=== PATIENT | female | born 1955 | race Caucasian/White ===

== ENCOUNTER 2019-11-04 02:05 | Day surgery (SDC) | payer BC, SELFPAY ==
[2019-10-29 10:33] VITALS: BMI 35.2
[2019-11-04 13:25] VITALS: BP 137/84; PULSE 78; RESP 18; TEMP 36.7; O2SAT 98
--- NOTE | 2019-11-04 13:29 | WPDANESEPPF ---
Anes - Initial Pre Proc Eval Procedure: Operation Date: 11/04/19 14:30 Proposed Procedures p Screening Colonoscopy - Artemio Perez MD Date/Time: 11/04/19 13:29 Surgeon: Artemio Perez MD Pre Op Diagnosis: neoplasm screening Patient Data Age: 64 Gender: F Height: 1.68 m Weight: 100.8 kg Last Vital Signs Temp 36.7 C 11/04/19 13:25 Pulse 78 11/04/19 13:25 Resp 18 11/04/19 13:25 BP 137/84 11/04/19 13:25 Pulse Ox 98 11/04/19 13:25 Allergies Allergy/AdvReac Type Severity Reaction Status Date / Time No Known Allergies Allergy Verified 09/30/19 08:37 Home Medications Medication Instructions Recorded Confirmed Type ascorbic acid (vitamin C) 500 mg 500 mg PO DAILY 09/20/19 10/29/19 History capsule calcium carbonate 600 mg calcium 600 mg PO BID 09/20/19 10/29/19 History (1,500 mg) tablet cholecalciferol (vitamin D3) 125 125 mcg PO DAILY 09/20/19 10/29/19 History mcg (5,000 unit) tablet levothyroxine 88 mcg tablet 88 mcg PO DAILY 09/20/19 10/29/19 History sertraline 50 mg tablet 50 mg PO DAILY #30 tablet 09/20/19 11/04/19 Rx peg 3350-electrolytes 236 240 ml PO Q10M #4000 ml 10/14/19 Rx gram-22.74 gram-6.74 gram-5.86 gram solution acetaminophen [Tylenol Arthritis 650 mg PO Q8H 10/29/19 10/29/19 History Pain] Patient hx anesthesia problems: none Family hx anesthesia problems: none PMFSH Social History Social History Smoking status: Never smoker Alcohol intake: current Substance use: never Substance use type: does not use Additional living arrangements comments: , daughter, and 3 grandchildren. 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[employer] Gender identity (if verbalized by the patient): Female Spiritual care concerns: No Agree to blood products: Yes Anes - Eval Final PreProcedure Day of Procedure 03/05/20 13:29 Patient weight: obese Heart: regular rate and rhythm Lungs: clear to auscultation and normal air movement Airway: Mallampati scale class III Neurological: alert and oriented Last oral intake: >/= 8 hours ASA classification: II Emergent: no Anesthetic plan: proceed Anesthesia type and monitoring: general GIVS and standard monitoring Informed Consent: The patient's anesthetic plan and its attendant risks and benefits were discussed with the patient/family/POA. Questions were solicited and answers provided to the satisfaction of the patient/family/POA.
[2019-11-04] MEDS: LACTATED RINGERS 1,000 ML 150 ML IV CONT (13:40)
--- NOTE | 2019-11-04 14:08 | PM.HPGS ---
History of Present Illness History of Present Illness Consent: Risks, benefits, and alternatives have been discussed and questions answered. Patient agrees to proceed with procedure. Chief complaint: neoplasm screening Narrative: Radha Zhang is a 64 year old female here for screening colonoscopy, never had one. Review of Systems Constitutional: Constitutional: Denies headache(s) and Denies weakness Eyes: Eyes: Denies blurry vision ENT: Reports Normal hearing present, Denies headache(s) and Denies neck pain Cardiovascular: Cardiovascular: Denies chest pain and Denies dyspnea Respiratory: Respiratory: Denies dyspnea Gastrointestinal: Gastrointestinal: Reports no additional gastrointestinal complaints Genitourinary: Genitourinary: Denies dysuria Musculoskeletal: Musculoskeletal: Denies neck pain Integumentary/Breasts: Skin/Breast: Denies dry skin Neurologic: Reports Normal hearing present, Denies headache(s) and Denies weakness Psychiatric: Psychiatric: Denies anxiety Endocrine: Endocrine: Denies change in body appearance Hematologic/Lymphatic: Hematologic/Lymphatic: Denies easy bleeding Allergic/Immunologic: Allergic/Immunologic: Denies urticaria PMFSH Social History Social History Smoking status: Never smoker Alcohol intake: current Substance use: never Substance use type: does not use Additional living arrangements comments: , daughter, and 3 grandchildren. 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[employer] Gender identity (if verbalized by the patient): Female Spiritual care concerns: No Agree to blood products: Yes Meds Home Medications and Allergies Home Medications Medication Instructions Recorded Confirmed Type ascorbic acid (vitamin C) 500 mg 500 mg PO DAILY 09/20/19 10/29/19 History capsule calcium carbonate 600 mg calcium 600 mg PO BID 09/20/19 10/29/19 History (1,500 mg) tablet cholecalciferol (vitamin D3) 125 125 mcg PO DAILY 09/20/19 10/29/19 History mcg (5,000 unit) tablet levothyroxine 88 mcg tablet 88 mcg PO DAILY 09/20/19 10/29/19 History sertraline 50 mg tablet 50 mg PO DAILY #30 tablet 09/20/19 11/04/19 Rx peg 3350-electrolytes 236 240 ml PO Q10M #4000 ml 10/14/19 Rx gram-22.74 gram-6.74 gram-5.86 gram solution acetaminophen [Tylenol Arthritis 650 mg PO Q8H 10/29/19 10/29/19 History Pain] Allergies Allergy/AdvReac Type Severity Reaction Status Date / Time No Known Allergies Allergy Verified 09/30/19 08:37 Vital Signs Vital Signs - 24 hr 11/04/19 13:25 Temperature 98.1 F Pulse Rate 78 Respiratory Rate 18 Blood Pressure 137/84 Pulse Oximetry 98 Exam Const: General: comfortable and no acute distress HENMT: General nose exam: Normal nares present Eyes: General: appearance normal, both eyes and all related structures Neck: Neck: no JVD Resp: Auscultation: clear to auscultation bilaterally Cardio: Rate: regular rate Rhythm: regular rhythm GI: Inspection: non-distended GI Palp: Yes Soft to palpation Skin: General skin exam: normal color Neuro: General: gait normal Speech: normal speech Extrem: General: normal to inspection Psych: Mental Status: mental status grossly normal Assessment and Plan Assessment and plan (1) Colon cancer screening: Code(s): Z12.11 - Encounter for screening for malignant neoplasm of colon Status: Acute Assessment and Plan: will proceed with colonoscopy
[2019-11-04 14:34] VITALS: BP 106/61; PULSE 61; RESP 16; O2SAT 95
[2019-11-04 14:44] VITALS: BP 125/74; PULSE 60; RESP 18; O2SAT 99
[2019-11-04 14:54] VITALS: BP 147/85; PULSE 60; RESP 18; O2SAT 100
== END 2019-11-04 15:13 | disposition home or self-care (01) ==
PROVIDERS: PCP Family Medicine; Visit Provider Internal Medicine Gastroenterology
PROC: 0DJD8ZZ Inspection of Lower Intestinal Tract, Via Natural or Artificial Opening Endoscopic (ICD-10-PCS; CPT 45378; principal; 2019-11-04 14:30)
DX: Z12.11 Encounter for screening for malignant neoplasm of colon (principal); D12.2 Benign neoplasm of ascending colon; K57.30 Diverticulosis of large intestine without perforation or abscess without bleeding; K64.8 Other hemorrhoids; E66.9 Obesity, unspecified; Z68.35 Body mass index [BMI] 35.0-35.9, adult
CPT/HCPCS: 45385; 88305; J2704; J7120

== ENCOUNTER 2020-01-25 07:56 | Outpatient (CLI) | payer BC, SELFPAY ==
--- NOTE | 2020-01-25 09:07 | ECG_ITS ---
Measurements Intervals [place] Rate: 62 P: 57 VT: 221 QRS: -24 QRSD: 118 T: 65 QT: 385 QTc: 391 Interpretive Statements SINUS RHYTHM WITH FIRST DEGREE AV BLOCK LEFT VENTRICULAR HYPERTROPHY AND ST-T CHANGE MINIMAL Q WAVES- HIGH LATERAL LEADS ABNORMAL ECG Electronically Signed On 01-25-2020 9:24:51 CDT by Rambo Gresham D.O.
[2020-01-25 09:30] LABS: Basophils Percent Auto 0.4 % (0.2-1.2); Eosinophils Absolute Auto 0.2 K/mm3 (0-0.3); Eosinophils Percent Auto 3.6 % (0-4.4); Hemoglobin 13.9 g/dL (12.0-15.0); Immature Granulocyte Absolute 0.01 K/mm3 (0.00-0.031); Immature Granulocyte Percent A 0.2 % (0-0.5); Lymphocytes Absolute Auto 1.05 K/mm3 (0.9-3.2); Lymphocytes Percent Auto 22.1 % (18.3-44.2); Mean Corpuscular HGB Conc 33.1 g/dl (32-36); Mean Corpuscular Volume 90.7 fl (80-100); Mean Platelet Volume 11.2 fl (7.4-10.4); Monocytes Absolute Auto 0.5 K/mm3 (0.1-0.6); Monocytes Percent Auto 10.1 % (2.6-8.5); Neutrophils Percent Auto 63.6 % (45.5-73.1); Platelet Count Result 201 k/mm3 (150-375); Red Blood Count 4.63 M/mm3 (4.2-5.4); Red Cell Distribution Width 12.7 % (11.5-14.5); White Blood Count 4.8 K/mm3 (4.5-10.0)
[2020-01-25 09:40] LABS: Urine Cotinine NEGATIVE
[2020-01-25 09:41] LABS: Hemoglobin A1C 5.9 % (<5.7)
[2020-01-25 09:42] LABS: Albumin Level 4.3 g/dL (3.5-5.1); Estimated Glomerular Filt Rate > 60; Glucose 112 mg/dL (65-105)
== END 2020-01-25 07:57 | disposition home or self-care (01) ==
LOC: ANHSURGERY 07:59
PROVIDERS: PCP Family Medicine; Visit Provider Orthopaedic Surgery
DX: M17.0 Bilateral primary osteoarthritis of knee (principal)
CPT/HCPCS: 36415; 80307; 82040; 82565; 82947; 83036; 85025; 87081; 93005

== ENCOUNTER 2020-02-04 00:09 | Outpatient (CLI) | payer BC, SELFPAY ==
[2020-02-04 15:54] LABS: SARS-CoV-2 RNA PCR Negative
== END 2020-02-04 00:10 | disposition home or self-care (01) ==
LOC: ANHCOVIDDT 00:09
PROVIDERS: PCP Family Medicine; Visit Provider Orthopaedic Surgery
DX: Z01.812 Encounter for preprocedural laboratory examination (principal); Z20.828 Contact with and (suspected) exposure to other viral communicable diseases
CPT/HCPCS: 87635; C9803; U0003

== ENCOUNTER 2020-02-07 03:35 | Day surgery (SDC) | payer BC, SELFPAY ==
[2020-01-25 08:28] VITALS: BMI 36.5
[2020-01-25 08:52] VITALS: BP 118/81; PULSE 70; RESP 18; TEMP 36.9; O2SAT 100
[2020-02-07] VITALS (15 sets, daily range): BP systolic 129–160; BP diastolic 58–103; PULSE 64–76; RESP 12–18; TEMP 36–36.9; O2SAT 97–100
--- NOTE | ~2020-02-07 | XR_ITS ---
EXAMINATION: XR knee LT 2V DATE: 02/07/2020 13:51 CDT INDICATION: Left knee arthroplasty TECHNIQUE: 2 views left knee FINDINGS: There is a left total knee arthroplasty in expected position. Subcutaneous gas with fluid and air in the joint are consistent with recent surgery. No evidence of periprosthetic fracture. IMPRESSION: 1. Recent left total knee arthroplasty. Reviewed, dictated and finalized at location A.
[2020-02-07] MEDS: LACTATED RINGERS 1,000 ML 30 ML IV CONT ×2 (09:10→13:15)
--- NOTE | 2020-02-07 09:11 | WPDANESEPPF ---
Anes - Initial Pre Proc Eval Procedure: Operation Date: 02/07/20 10:30 Proposed Procedures p Left Total Knee Arthroplasty, Right Knee Injection - Ervin Mendoza MD Date/Time: 02/07/20 09:11 Surgeon: Ervin Mendoza MD Pre Op Diagnosis: OA Left Knee Patient Data Age: 64 Gender: F Height: 5 ft 5.5 in Weight: 102.2 kg Last Vital Signs Temp 36.9 C 01/25/20 08:52 Pulse 70 01/25/20 08:52 Resp 18 01/25/20 08:52 BP 118/81 01/25/20 08:52 Pulse Ox 100 01/25/20 08:52 Allergies Allergy/AdvReac Type Severity Reaction Status Date / Time ibuprofen AdvReac Mild Hypertensio Verified 02/07/20 08:49 [From NeoProfen (ibuprofen n lysn)(PF)] meloxicam AdvReac Mild NAUSEA AND Verified 02/07/20 08:49 HYPERTENSION Home Medications Medication Instructions Recorded Confirmed Type ascorbic acid (vitamin C) 500 mg 500 mg PO DAILY 09/20/19 02/07/20 History capsule calcium carbonate 600 mg calcium 600 mg PO BID 09/20/19 02/07/20 History (1,500 mg) tablet cholecalciferol (vitamin D3) 125 125 mcg PO DAILY 09/20/19 02/07/20 History mcg (5,000 unit) tablet acetaminophen [Tylenol Arthritis 650 mg PO Q8H PRN 10/29/19 02/07/20 History Pain] sertraline 50 mg tablet 50 mg PO DAILY #30 tablet 11/29/19 02/07/20 Rx hydrocodone 5 mg-acetaminophen 325 1 tablet PO Q8H PRN #30 tablet 12/30/19 02/07/20 Rx mg tablet rivaroxaban 10 mg tablet 10 mg PO DAILY #13 tablet MDD 1 01/26/20 02/07/20 Rx tab = 10mg levothyroxine 88 mcg tablet 88 mcg PO DAILY #90 tablet 02/02/20 02/07/20 Rx Patient hx anesthesia problems: none Family hx anesthesia problems: none PMFSH Past Medical History Medical History (Updated 02/07/20 @ 09:11 by Caden Figueroa MD) Colon cancer screening Depression Mai's disease Obesity Surgical History Surgical History History of dilatation and curettage 1984 Dr. Ivy History of facial surgery 12/2011 Family History Family History Father Diabetes mellitus Heart disease Hypertension Mother Diabetes mellitus Heart disease Hypertension Sibling Cancer Grandparent Diabetes mellitus maternal and paternal Cancer Maternal Social History Social History Smoking status: Never smoker Alcohol intake: current Substance use: never Substance use type: does not use Additional living arrangements comments: , daughter, and 3 grandchildren. 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[employer] Gender identity (if verbalized by the patient): Female Spiritual care concerns: No Agree to blood products: Yes Anes - Eval Final PreProcedure Day of Procedure 02/07/20 09:11 Patient weight: obese Heart: regular rate and rhythm Lungs: clear to auscultation Airway: Mallampati scale class II Neurological: alert and oriented Last oral intake: >/= 8 hours ASA classification: II Emergent: no Anesthetic plan: proceed Anesthesia type and monitoring: general LMA and standard monitoring Informed Consent: The patient's anesthetic plan and its attendant risks and benefits were discussed with the patient/family/POA. Questions were solicited and answers provided to the satisfaction of the patient/family/POA.
[2020-02-07] MEDS: TRANEXAMIC ACID 1,000MG/ISO100 1,000 MG/100 ML BAG 200 MG IVPB (09:45)
--- NOTE | 2020-02-07 09:45 | WPDHPUPDATE1 ---
History and Physical Update Update Date/Time: 02/07/20 09:45 History and Physical has been reviewed, including an updated exam of the patient. There are NO changes in the patient's condition. Risks, benefits, and alternatives have been discussed and questions answered. Patient agrees to proceed with procedure.
[2020-02-07] MEDS: ceFAZolin 2 GM/D5W 50 ML 2 GM/50 ML BAG IVPB ×2 (10:34→18:26)
[2020-02-07] MEDS: SODIUM CHLORIDE 0.9% IV 50 ML, TRANEXAMIC ACID 1,000 MG TOPICAL (11:27)
[2020-02-07] MEDS: GENTAMICIN BONE CEMENT REFOBACIN 1 EACH TOPICAL (11:35)
[2020-02-07] MEDS: ceFAZolin SODIUM 1 GM VIAL IV PUSH (12:03)
--- NOTE | 2020-02-07 13:11 | P.OP_ITS ---
Procedure Note - Detailed Date of procedure: 02/07/20 Pre-op diagnosis: OA both knees Post-op diagnosis: same Procedure performed: Left total knee replacement; right knee injection. Description of procedure: The patient was identified and proper site identified. The patient was taken to the operating room and transferred to the OR table positioning supine taking care to pad the torso and extremities. After induction of general anesthesia and intubation a nonsterile tourniquet was placed high on the left thigh. While this was being done, the right knee was injected intra-articularly using sterile technique with 3 cc of 0.25% Marcaine and 20 mg of Kenalog. The left lower extremity was prepped and draped in the usual sterile fashion. The extremity was exsanguinated and with the knee flexed tourniquet was inflated to 300 mmHg remaining up for approximately 66 minutes. An anterior midline incision was made and a modified medial parapatellar approach was used. Infra and suprapatellar fat pads were excised. Patella was resected leaving 15 mm thickness and prepared for the 34 round three peg component. Using the intramedullary guide the distal femur was cut in the proper orientation for the size 65 femoral component. Using the extramedullary guide the tibia was cut perpendicular to the long axis protecting collateral ligaments and popliteal structures. It was sized to a 71. Flexion and extension gaps were balanced. Trial reduction was undertaken and the weight- bearing line was noted to passed through the center of the joint. Proximal tibia was drilled and punched in the proper orientation for the real component. Trial components were removed. The bone surfaces were washed with pulsatile lavage and dried. The real components were cemented simultaneously. The knee was held in extension and the patella held clamped until the cement had cured. Excess cement was removed from the joint. After trialing it was determined that the 10 mm insert gave full range of motion from 0-115 degrees of flexion and the patella tracked in the femoral groove with slight lift-off; and extra synovial lateral release was performed protecting the superior lateral geniculate artery. After final lavage the joint the real 10 insert was placed and secured with a locking bar. A Betadine and saline wash was placed into the wound and allowed to sit for approximately 3 minutes and then evacuated. Periarticular tissues were infiltrated with 60 cc of the arthroplasty solution. 1 g of tranexamic acid was left in the wound. The extensor mechanism was repaired with #2 Vicryl suture and 0 looped PDS suture. Subcu was reapproximated with 2. Vicryl in the deeper layers and two 0 strata fix with tissue adhesive for the skin. A sterile dressing was applied. She tolerated the procedure well, was awakened and extubated, transferred to the bed and was taken to recovery area in stable condition. There were no known intraoperative complications. Perioperative antibiotics were administered. Surgeon: Ervin Mendoza MD Estimated blood loss (mL): 250 Tourniquet time (min): 66 Drains: No Packing: No Pathology: none sent Complications: No immediate complications Condition: stable Disposition: PACU
--- NOTE | 2020-02-07 14:12 | SUR.PHASEI ---
[id number] left message with , update on pt condition and room#
--- NOTE | 2020-02-07 14:15 | SUR.PHASEI ---
[id number] sbar faxed floor notified
--- NOTE | 2020-02-07 15:43 | ADMGEN ---
This patient, Radha Zhang, was admitted to Medical Room 243-01. Patient/family oriented to hospital policies and general routines including ID bracelet, bed and alarms, visiting hours, pain management, procedures, bathroom and other care routines, personal items, smoking policy, room service/diet, and visiting hours. Valuables list has been completed. Information on how to activate the Rapid Response Team has been discussed. Patient/Family are encouraged to report perceived risks to care and to ask questions if they do not understand what they are told or what they should do.
[2020-02-07] MEDS: DOCUSATE SODIUM 100 MG CAPSULE PO (18:22)
[2020-02-07] MEDS: CALCIUM CARBONATE (OSCAL) 500 MG TABLET PO (18:26)
[2020-02-07] MEDS: FAMOTIDINE 20 MG TABLET PO (20:21)
[2020-02-08 01:00] VITALS: BP 129/71; PULSE 66; RESP 20; TEMP 36.7; O2SAT 99
[2020-02-08] MEDS: ceFAZolin 2 GM/D5W 50 ML 2 GM/50 ML BAG IVPB ×2 (02:35→10:54)
[2020-02-08] MEDS: LEVOTHYROXINE SODIUM 88 MCG TABLET PO (05:35)
--- NOTE | 2020-02-08 07:33 | WPDANESPN ---
Anes - Prog Note Post-Op Date/Time: 02/08/20 07:33 Cardiovascular status: normal Respiratory status: normal Airway patency: baseline Mental status: baseline Post-Op hydration status: normal Vital Signs: Last Vital Signs Temp 36.7 C 02/08/20 01:00 Pulse 66 02/08/20 01:00 Resp 20 02/08/20 01:00 BP 129/71 02/08/20 01:00 Pulse Ox 99 02/08/20 01:00 I/O: Intake & Output 02/07/20 02/07/20 02/08/20 15:59 23:59 07:59 Intake Total 450 770 450 Output Total 1500 Balance 450 770 -1050 02/07/20 09:16 Blood Type A Positive Antibody Screen Negative Post-procedural complaints: none Patient Feedback: Patient satisfied with anesthetic care.
--- NOTE | 2020-02-08 07:38 | PM.PNORT ---
Progress Note: A&P Assessment and Plan (1) Degenerative arthritis of knee, bilateral: Qualifiers: Osteoarthritis type: primary Qualified Code(s): M17.0 - Bilateral primary osteoarthritis of knee Code(s): M17.0 - Bilateral primary osteoarthritis of knee Status: Acute (2) History of total left knee replacement: Code(s): Z96.652 - Presence of left artificial knee joint Status: Acute Assessment and Plan: 64-year-old female doing well postop day one left total knee replacement. Her right knee was injected in is doing fine. Plan discharge home today. Therapy starts in a week. She was instructed to call with any questions prior to follow-up. Surgery discussed and questions answered. Subjective Subjective Date/Time Seen: 02/08/20 07:38 Post Op day: 1 Principal diagnosis: Status post left total knee replacement and right knee injection Review of Systems Constitutional: Constitutional: Denies chills and Denies fever(s) Eyes: Eyes: Reports no additional eye complaints ENT: Reports system reviewed and no additional complaints, except as documented Cardiovascular: Cardiovascular: Denies chest pain and Denies dyspnea on exertion Respiratory: Respiratory: Reports no additional respiratory complaints and Denies dyspnea on exertion Gastrointestinal: Gastrointestinal: Denies abdominal pain and Denies bloating Exam Const: General: cooperative, no acute distress and alert Nutritional Appearance: other Orientation/consciousness: patient oriented x3 Limitations: no limitations HENMT: Head: normal to inspection Ears: hearing grossly normal bilaterally Face and sinus: face symmetric Mouth: Yes moist mucous membranes Teeth and gingiva: fair dentition Eyes: Alignment and Position: alignment normal and position normal Sclera: sclerae normal Neck: Neck: normal visual inspection and nontender Chest: Chest palpation & inspection: normal inspection of the chest Resp: Effort & Inspection: normal respiratory effort and able to speak in complete sentences GI: Inspection: other (Nondistended) Skin: General skin exam: normal color Rashes: no rashes Neuro: General: patient oriented x3 Cognition (Neuro): normal cognition Speech: normal speech Gait exam (Neuro): Other gait observations present Motor exam (neuro): 5/5 motor strength present throughout (Left lower extremity) Sensory Exam: normal sensation Extrem: General: normal to inspection and other Other: Exam of the left knee wound shows it to be well approximated, dry and non erythematous. Very little swelling in the knee. Neurovascular status grossly unremarkable left lower extremity Psych: Appearance: grossly normal Mental Status: mental status grossly normal Objective Data Vital Signs Vital Signs: Vital Signs - 24 hr 02/07/20 09:32 02/07/20 13:20 02/07/20 13:35 Temperature 97.2 F L 97 F L Pulse Rate 64 76 72 Respiratory Rate 16 18 12 Blood Pressure 129/76 148/81 H 140/103 H Pulse Oximetry 98 98 98 02/07/20 13:50 02/07/20 14:05 02/07/20 14:19 Temperature Pulse Rate 68 68 69 Respiratory Rate 15 12 14 Blood Pressure 159/75 H 160/87 H 154/82 H Pulse Oximetry 98 97 99 02/07/20 14:30 02/07/20 14:45 02/07/20 15:00 Temperature Pulse Rate 65 65 73 Respiratory Rate 14 14 12 Blood Pressure 148/86 H 156/80 H 153/87 H Pulse Oximetry 98 99 100 02/07/20 15:15 02/07/20 15:30 02/07/20 16:00 Temperature 97.3 F L 96.9 F L 97.2 F L Pulse Rate 69 65 67 Respiratory Rate 16 16 16 Blood Pressure 140/68 145/81 H 145/73 H Pulse Oximetry 100 100 100 02/07/20 19:00 02/07/20 20:00 02/07/20 21:00 Temperature 96.8 F L 98.4 F Pulse Rate 75 75 71 Respiratory Rate 16 16 16 Blood Pressure 134/68 130/58 L Pulse Oximetry 99 99 98 02/08/20 01:00 Temperature 98.0 F Pulse Rate 66 Respiratory Rate 20 Blood Pressure 129/71 Pulse Oximetry 99 Intake/Output Intake/Output: Intake & Output 02/05/20 02/06/20
--- NOTE | 2020-02-08 07:44 | P.DS_ITS ---
DS: Admitting Diagnosis Admitting Diagnosis Admitting Diagnosis: Osteoarthritis knees DS: Discharge Diagnosis Discharge Diagnosis (1) History of total left knee replacement: Code(s): Z96.652 - Presence of left artificial knee joint Status: Acute (2) Degenerative arthritis of knee, bilateral: Qualifiers: Osteoarthritis type: primary Qualified Code(s): M17.0 - Bilateral primary osteoarthritis of knee Code(s): M17.0 - Bilateral primary osteoarthritis of knee Status: Acute DS: Summary Time Spent with Patient Time attestation: Total time spent providing and/or coordinating discharge services: DS: Data Data Completed and Pending Labs on day of discharge: Labs from last 24 hours 02/07/20 09:16 Blood Type A Positive Antibody Screen Negative Discharge Plan Discharge Patient Disposition: Home, Self-Care Discharge Instructions: Please call [facility] at as soon as possible to verify your follow-up appointment to be seen in two weeks. Also, call the office with any orthopedic/surgical related questions prior to follow-up. * 3 times daily for 20 minutes each time, reclining in bed with ice packs over the incision and a pillow underneath the affected calf. * Your wound is glued so it is okay to get into the shower and get the wound wet. * Be sure to read through all the information that came from a my office and the hospital. Most of the answer was you will need can be found that material. * Call the office with any questions that you cannot find answers to, or concerns you may have. * After the Xarelto is completed, start taking one coated 325 mg aspirin daily and do this for four more weeks. * Be sure to get up and move around several times daily but do not overdo it. Patient Instructions: Rivaroxaban (By mouth), Joint Replacement Surgery (DC), Knee Replacement (DC) Discharge Medications: New oxycodone-acetaminophen 5-325 mg Tablet 1 tablet PO Q4HR PRN (Reason: pain) Qty: 40 RF: 0 ondansetron HCl [Zofran] 4 mg tablet 4 mg PO Q6H PRN (Reason: nausea and vomiting) Qty: 20 RF: 0 Continued cholecalciferol (vitamin D3) [Vitamin D3] 125 mcg (5,000 unit) tablet 125 mcg PO DAILY RF: 0 ascorbic acid (vitamin C) 500 mg capsule 500 mg PO DAILY RF: 0 calcium carbonate [Calcium 600] 600 mg calcium (1,500 mg) tablet 600 mg PO BID RF: 0 Xarelto 10 mg tablet 10 mg PO DAILY MDD 1 tab = 10mg Qty: 13 RF: 0 acetaminophen [Tylenol Arthritis Pain] 650 mg Tablet Extended Release 650 mg PO Q8H PRN (Reason: Pain) RF: 0 sertraline [Zoloft] 50 mg tablet 50 mg PO DAILY Qty: 30 RF: 3 levothyroxine 88 mcg tablet 88 mcg PO DAILY Qty: 90 RF: 0 Discontinued hydrocodone-acetaminophen 5-325 mg tablet 1 tablet PO Q8H PRN (Reason: pain) Qty: 30 RF: 0 Primary Care Provider: Celeste Gagnon Attending physician on admission: Ervin Mendoza VTE Prophylaxis VTE prophylaxis: mechanical ordered and pharmacologic ordered
[2020-02-08] MEDS: polyethylene glycoL 3350 17 GM POWD.PACK PO (09:36)
[2020-02-08] MEDS: ASCORBIC ACID 500 MG TABLET PO (09:36)
[2020-02-08] MEDS: CHOLECALCIFEROL 1,000 UNIT TABLET 5000 UNITS PO (09:36)
[2020-02-08] MEDS: FAMOTIDINE 20 MG TABLET PO (09:36)
[2020-02-08] MEDS: RIVAROXABAN 10 MG TABLET PO (09:36)
[2020-02-08] MEDS: DOCUSATE SODIUM 100 MG CAPSULE PO (09:36)
[2020-02-08] MEDS: CALCIUM CARBONATE (OSCAL) 500 MG TABLET PO (09:36)
[2020-02-08] MEDS: SERTRALINE HCL 50 MG TABLET PO (09:36)
== END 2020-02-08 15:48 | disposition home or self-care (01) ==
LOC: ANHSURGERY 13:14 → ANH2MED 15:05
PROVIDERS: PCP Family Medicine; Visit Provider Orthopaedic Surgery
PROC: (CPT 27447; principal; 2020-02-07 10:30)
DX: M17.0 Bilateral primary osteoarthritis of knee (principal); E06.3 Autoimmune thyroiditis; F32.9 Major depressive disorder, single episode, unspecified; E66.9 Obesity, unspecified; Z68.36 Body mass index [BMI] 36.0-36.9, adult
CPT/HCPCS: 27447; 20610; 36415; 73560; 86850; 86900; 86901; 97110; 97116; 97161; 97165; 97530; A9270; C1713; J0131; J0171; J0690; J1100; J2250; J2270; J2405; J2704; J2795; J3010; J3301; J7120

== ENCOUNTER 2020-03-28 12:31 | Outpatient (CLI) | payer BC, SELFPAY ==
--- NOTE | ~2020-03-28 | US_ITS ---
US thyroid INDICATION: Nontoxic multinodular goiter. TECHNIQUE: Real-time sonographic images of the thyroid gland were obtained. COMPARISON: Ultrasound dated 05/06/2012 FINDINGS: The right thyroid lobe measures 5.9 x 2.7 x 3.7 cm. The left thyroid lobe measures 7.5 x 3 .9 x 4.5 cm. In the isthmus there is a solid hypoechoic mass which is wider than tall, smooth margins without internal calcifications measuring 2.8 x 2.2 x 1.2 cm compared with 2.2 x 2 x 1.3 cm on prior examination. This is TR 4, moderately suspicious. In the right lobe there is a conglomeration of mas ses with the largest discrete nodule measuring 3.7 x 2.5 x 2.7 cm. This mass is solid, hyperechoic, w ider than tall, lobulated margins without definite internal calcifications, TR 4, moderately suspicio us. There is internal vascularity. Largest nodule in the left lobe measures 3.9 x 3.4 x 3.1 cm. This mass is mixed solid and cystic, slightly hyperechoic, wider than tall, lobulated/irregular margins wi thout internal calcifications, TR 4, moderately suspicious. IMPRESSION: 1. Enlarged thyroid gland with multiple masses. There has been enlargement of multiple masses partic ularly in the isthmus and right lobe. Ultrasound-guided fine-needle aspiration biopsy of dominant mas ses in the right lobe, left lobe and isthmus recommended. Reviewed, dictated and finalized at location A. IMPRESSION: 1. Enlarged thyroid gland with multiple masses. There has been enlargement of multiple masses particularly in the isthmus and right lobe. Ultrasound-guided f ine-needle aspiration biopsy of dominant masses in the right lobe, left lobe an d isthmus recommended.
== END 2020-03-28 12:32 | disposition home or self-care (01) ==
LOC: ANHIMG 12:33
PROVIDERS: PCP Family Medicine; Visit Provider Otolaryngology
DX: E04.2 Nontoxic multinodular goiter (principal)
CPT/HCPCS: 76536

== ENCOUNTER 2020-04-07 12:57 | Outpatient (CLI) | payer BC, SELFPAY ==
--- NOTE | ~2020-04-07 | US_ITS ---
EXAMINATION: US FNA w image guidance, US abscess cyst aspiration, US FNA additional DATE: 04/07/2020 14:49 INDICATION: Nontoxic multinodular goiter TECHNIQUE: A time-out was performed to verify the patient's name, date of , and procedure to be performed . The procedure and its benefits and risks were discussed with the patient. Risks specifically discus sed included bleeding and infection. The patient understood the risks and agreed to proceed. The neck was prepped and draped in the usual sterile manner. 3 mL 1% lidocaine was used for local anesthesia . Attention was first turned to the right thyroid nodule. 5 passes were made with a 25G needle into the lesion. Appropriate needle location was documented with continuous sonographic guidance. Attenti on was then turned to the nodule at the thyroid isthmus. There appeared to be a layering fluid fluid level in the dependent aspect of the nodule suggesting that this represented a complex cystic lesion despite its hypoechoic appearance with multiple foci of likely artifactual color on color Doppler sylvester ging. An initial pass with ultrasound guidance was made with a 25G needle into the lesion with aspira tion yielding small amount of relatively clear fluid. A second pass with ultrasound guidance was made into the lesion with a 21G needle and 3 mm of turbid greenish lugo-colored fluid was aspirated result ing in complete decompression of the cyst. Finally attention was turned to the nodule in the left thy roid. 5 passes were made with a 25G needle into the lesion. Appropriate needle location was document ed with continuous sonographic guidance. Specimens from each nodule were delivered to the Department of pathology. Sterile bandages were applied. There were no immediate complications. FINDINGS: Grayscale ultrasound images demonstrate biopsy needles advanced into nodules in the left and right th yroid lobes and a complex cystic lesion at the thyroid isthmus. IMPRESSION: 1. Successful ultrasound-guided fine needle aspiration of a 3.3 x 3.0 x 2.0 cm solid isoechoic mass in the superior right thyroid lobe. 2. Successful ultrasound-guided aspiration of a 2.4 x 1.4 x 2.3 cm complex cystic lesion at the thyro id isthmus. 3. Successful ultrasound-guided fine-needle aspiration of a 3.7 x 2.8 cm solid isoechoic mass in the inferior left thyroid lobe. Reviewed, dictated and finalized at location A. IMPRESSION: 1. Successful ultrasound-guided fine needle aspiration of a 3.3 x 3.0 x 2.0 cm solid isoechoic mass in the superior right thyroid lobe. 2. Successful ultrasound-guided aspiration of a 2.4 x 1.4 x 2.3 cm complex cyst ic lesion at the thyroid isthmus. 3. Successful ultrasound-guided fine-needle aspiration of a 3.7 x 2.8 cm solid isoechoic mass in the inferior left thyroid lobe. IMPRESSION: 1. Successful ultrasound-guided fine needle aspiration of a 3.3 x 3.0 x 2.0 cm solid isoechoic mass in the superior right thyroid lobe. 2. Successful ultrasound-guided aspiration of a 2.4 x 1.4 x 2.3 cm complex cyst ic lesion at the thyroid isthmus. 3. Successful ultrasound-guided fine-needle aspiration of a 3.7 x 2.8 cm solid isoechoic mass in the inferior left thyroid lobe.
== END 2020-04-07 12:58 | disposition home or self-care (01) ==
LOC: ANHIMG 13:07
PROVIDERS: PCP Family Medicine; Visit Provider Otolaryngology
DX: E04.2 Nontoxic multinodular goiter (principal)
CPT/HCPCS: 10005; 10006; 76942; 88104; 88108; 88173; 88305

== ENCOUNTER 2020-05-11 11:15 | Outpatient (RCR) | payer BC, SELFPAY ==
--- NOTE | 2020-02-14 13:30 | PTOPEVAL ---
Thank you for referring Radha Zhang to [facility]. Please review, sign, date and return this plan of care ANA. Pt referred to therapy due to s/p left TKR on 02/07/20. She demonstrates decreased knee range, LE weakness, decreased ability to perform transfers and ambulation, increased pain and decreased tolerance with daily activities. She requires additional skilled PT 2-3x/wk x 8 wk. I agree with and certify that the following plan of care is medically necessary. Referring Physician Date Attending Provider: Ervin Mendoza MD *PT Outpatient Evaluation Start: 02/14/20 12:36 Freq: Status: Active Protocol: Document 02/14/20 12:32 CAP (Rec: 02/14/20 13:30 CAP [id number]) Therapy Assessment Status Assessment Status Assessment Status Evaluation Outpatient Past Medical History Neurological History Hx Neurological Disorders No Significant History Cardiovascular History Hx Other Cardiac Disorders Yes: WATER AEROBIC 2-3 X WK FOR 45 MINS Respiratory History Hx Respiratory Disorders No Significant History Gastrointestinal History Hx Gastrointestinal Disorders No Significant History Genitourinary History Hx Genitourinary Disorders No Significant History Musculoskeletal History Hx Arthritis Yes: KNEES Hx Fractures Yes: COLLAR BONE,NOSE Hx Joint Replacement Yes: left TKR Hx Other Musculoskeletal Disorders Yes: OA LEFT KNEE Hematological History Hx Hematological Disorders No Significant History Endocrine History Hx Other Endocrine Disorders Yes: HASHIMOTOS THYROIDITIS HEENT History Hx Other HEENT Disorders Yes: 2011 FACIAL SURGERY AT [facility]- FELL AT WORK Integumentary History Hx Skin Disorders No Significant History Reproductive History Hx Post Menopausal Yes Psychosocial History Hx Depression Yes Pain History Has Past Pain Affected Your Daily Life Yes: KNEES Anesthesia History Hx Anesthesia Reactions No Significant History Evaluation Information Problem Diagnosis left TKR Onset 02/07/20 Cause OA of knee Additional Evaluation Detail right TKR to be scheduled in 12 wks. Subjective Information Pt reports her left knee Query Text:As Reported By Patient/ remains sore and painful. She Family is walking with the rollator. She reports limitations with ADL's, walking household and community mobility, prolonged position, getting in/out of bed. 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 Prior to
--- NOTE | 2020-03-16 16:33 | PTOPEVAL ---
Thank you for referring Radha Zhang to [facility]. Please review, sign, date and return this plan of care ANA. Pt has received 10 therapy visits to address LE impairments related to TKR. She is progressing with LE strength, knee range, and performance with functional mobility. She requires additional skilled PT 2-3x/wk x 6 wk to achieve maximal function. I agree with and certify that the following plan of care is medically necessary. Referring Physician Date Attending Provider: Ervin Mendoza MD Physical therapy re-evaluation note *PT Outpatient Evaluation Start: 02/14/20 12:36 Freq: Status: Active Protocol: Document 03/16/20 15:29 CAP (Rec: 03/16/20 16:09 CAP [id number]) Therapy Assessment Status Assessment Status Assessment Status Re-evaluation Problem Diagnosis left TKR Onset 02/07/20 Cause OA of knee Additional Evaluation Detail right TKR to be scheduled in 12 wks. Subjective Information Pt reports her left knee is Query Text:As Reported By Patient/ more sore and stiff today Family than it has been. she is unsure of the reason for the decline in status. She is walking with the quad cane. She reports improved ability to walk in the house and community distances. She is able to sit in the front seat for up to 1 hours. She is able to allen more general activities in sitting and standing. She is performing cooking task in the kitchen. She has been walking the inclined driveway at her house without difficulty. Pain Assessment Timing of Pain Assessment Timing of Pain Assessment Re-assessment Pain Scale Pain Scale Used Numeric (1 - 10) Self Report Pain Assessment Left Knee(s) Reported Pain Level 3 Pain Description Aching,Tightness Pain Frequency Continuous Lowest Pain Intensity 1 Greatest Pain Intensity 3 Pain Aggravating Factors ADL's,Prolonged Position Pain Behaviors Grimacing,Guarding Pain Score Pain Score 3: Self Report Lower Extremity Range of Motion Knee Range of Motion Left Reason Not Measured Pain Knee Flexion Range of Motion - Active 70 Knee Flexion Range of Motion - Passive 75 Knee Extension Range of Motion - Active -18 Query Text: Knee Exte
--- NOTE | 2020-04-19 11:01 | PTOPEVAL ---
Thank you for referring Radha Zhang to [facility].? Pt has received 18 therapy visits to address her limitations related to her knee surgery. The patient is scheduled to be seen for therapy? 2 x/week for 4 weeks. Please review, sign, date and return this plan of care ANA. I agree with and certify that the following plan of care is medically necessary. Referring Physician Date Attending Provider: Ervin Mendoza MD Physical Therapy progress note *PT Outpatient Evaluation Start: 02/14/20 12:36 Freq: Status: Active Protocol: Document 04/18/20 13:28 EMMETT (Rec: 04/18/20 14:24 EMMETT [id number]) Therapy Assessment Status Assessment Status Assessment Status Re-evaluation Evaluation Information Problem Diagnosis left TKR Onset 02/07/20 Cause OA of knee Additional Evaluation Detail right TKR to be scheduled in 12 wks. Subjective Information Pt reports her left knee is Query Text:As Reported By Patient/ more sore and stiff today Family after 10 hours in the car this weekend. She is walking without a device most of the time. She reports improved ability to walk in the house and community distances. She was able to allen 3 hours in the car, but increase knee pain/ stiffness. She is performing household task without difficulty. She is driving and performing shopping task without assitsance. Pain Assessment Timing of Pain Assessment Timing of Pain Assessment Re-assessment Pain Scale Pain Scale Used Numeric (1 - 10) Self Report Pain Assessment Right Knee(s) Reported Pain Level 1 Pain Description Aching Pain Frequency Chronic Lowest Pain Intensity 1 Greatest Pain Intensity 4 Left Knee(s) Reported Pain Level 1 Pain Description Aching,Tightness Lowest Pain Intensity 0 Greatest Pain Intensity 2 Pain Score Pain Score 1,1: Self Report Lower Extremity Range of Motion Knee Range of Motion Left Knee Flexion Range of Motion - Active 90 Knee Flexion Range of Motion - Passive 96 Knee Extension Range of Motion - Active -10 Query Text: Knee Range of Motion Limitations Muscle Weakness,Pain,Soft Tissue Restriction Knee Range of Motion Comments initially -15 for knee ext,
--- NOTE | 2020-05-15 12:29 | PCPTNOTE ---
This treatment is being continued on visit number 24 to [id number]. Please see documentation on both accounts to view progress. Completed interventions, outcomes, and problems have been marked as Inactive to facilitate the copying of the Care plan routine for recurring accounts.
--- NOTE | 2020-05-15 12:32 | PCPTNOTE ---
This treatment is being continued on visit number 24 to [id number]. Please see documentation on both accounts to view progress. Completed interventions, outcomes, and problems have been marked as Inactive to facilitate the copying of the Care plan routine for recurring accounts.
== END 2020-05-14 23:59 | disposition home or self-care (01) ==
LOC: ANHPT 11:15
PROVIDERS: PCP Family Medicine; Visit Provider Orthopaedic Surgery
DX: M17.12 Unilateral primary osteoarthritis, left knee (principal)
CPT/HCPCS: 97110; 97116; 97140; 97162; 97530

== ENCOUNTER 2020-05-16 07:34 | Outpatient (RCR) | payer BC, SELFPAY ==
--- NOTE | 2020-05-16 13:58 | PTOPEVAL ---
Thank you for referring Radha Zhang to [facility].? Pt has reached maximal potential with skilled therapy services at this time. DC skilled PT with pt to continue with a HEP. Please review, sign, date and return this plan of care ANA. I agree with and certify that the following plan of care is medically necessary. Referring Physician Date Attending Provider: Ervin Mendoza MD Referring Provider: *PT Outpatient Evaluation Start: 05/15/20 12:35 Freq: Status: Active Protocol: Document 05/16/20 11:16 EMMETT (Rec: 05/16/20 11:54 EMMETT [id number]) Therapy Assessment Status Assessment Status Assessment Status Discharge Evaluation Information Problem Diagnosis left TKR Onset 02/07/20 Cause OA of knee Additional Evaluation Detail right TKR to be scheduled in 12 wks. Subjective Information Pt reports her right knee has Query Text:As Reported By Patient/ mild pain, but no pain in Family left knee. She is averaging 5000 steps a day. Denies any changes in pain with the walking. She was able to allen 3 hours in the car, then has to stretch her knees. She is performing household task without difficulty. She attempted to ride her bike but was unable due to perform due to knee stiffness. She does feel like her legs are stronger. She is performing aquatic exercises 3x/wk. Pain Assessment Timing of Pain Assessment Timing of Pain Assessment Re-assessment Pain Scale Pain Scale Used Numeric (1 - 10) Self Report Pain Assessment Right Knee(s) Reported Pain Level 2 Lowest Pain Intensity 1 Greatest Pain Intensity 3 Left Knee(s) Reported Pain Level 0 Lowest Pain Intensity 0 Greatest Pain Intensity 0 Pain Score Pain Score 0,2: Self Report Lower Extremity Range of Motion Knee Range of Motion Left Knee Flexion Range of Motion - Active 96 Knee Flexion Range of Motion - Passive 100 Knee Extension Range of Motion - Active -6 Query Text: Knee Extension Range of Motion - Passive -3 Knee Range of Motion Limitations Soft Tissue Restriction Lower Extremity Muscle Strength Testing Hip Strength Right Hip Flexion Strength 5 Normal Hip Extension Strength 4+ Good + Hip Abduction Strength 3+ Fair +
== END 2020-05-16 14:25 | disposition home or self-care (01) ==
LOC: ANHPT 07:34
PROVIDERS: PCP Family Medicine; Visit Provider Orthopaedic Surgery
DX: M17.12 Unilateral primary osteoarthritis, left knee (principal)
CPT/HCPCS: 97530

== ENCOUNTER 2020-07-10 08:11 | Outpatient (CLI) | payer BC, SELFPAY ==
[2020-07-10 09:04] LABS: Basophils Percent Auto 0.4 % (0.2-1.2); Eosinophils Absolute Auto 0.2 K/mm3 (0-0.3); Eosinophils Percent Auto 3.2 % (0-4.4); Hematocrit 40.8 % (37.0-47.0); Hemoglobin 13.4 g/dL (12.0-15.0); Lymphocytes Absolute Auto 1.03 K/mm3 (0.9-3.2); Lymphocytes Percent Auto 19.6 % (18.3-44.2); Mean Corpuscular HGB Conc 32.8 g/dl (32-36); Mean Corpuscular Hemoglobin 29.8 pg (26-34); Mean Corpuscular Volume 90.7 fl (80-100); Mean Platelet Volume 10.7 fl (7.4-10.4); Monocytes Absolute Auto 0.6 K/mm3 (0.1-0.6); Monocytes Percent Auto 10.5 % (2.6-8.5); Neutrophils Absolute Auto 3.5 K/mm3 (1.3-6.7); Neutrophils Percent Auto 66.3 % (45.5-73.1); Platelet Count Result 230 k/mm3 (150-375); Red Cell Distribution Width 13.4 % (11.5-14.5); White Blood Count 5.3 K/mm3 (4.5-10.0)
[2020-07-10 09:15] LABS: Urine Cotinine NEGATIVE
[2020-07-10 09:16] LABS: Albumin Level 4.3 g/dL (3.5-5.1); Estimated Glomerular Filt Rate > 60; Glucose 111 mg/dL (65-105)
[2020-07-10 09:51] LABS: Hemoglobin A1C 5.5 % (<5.7)
== END 2020-07-10 08:12 | disposition home or self-care (01) ==
LOC: ANHSURGERY 08:13
PROVIDERS: PCP Family Medicine; Visit Provider Orthopaedic Surgery
DX: Z01.818 Encounter for other preprocedural examination (principal); M17.11 Unilateral primary osteoarthritis, right knee
CPT/HCPCS: 80307; 82040; 82565; 82947; 83036; 85025; 87081

== ENCOUNTER 2020-07-21 00:17 | Outpatient (CLI) | payer BC, SELFPAY ==
[2020-07-21 19:25] LABS: SARS-CoV-2 RNA PCR Negative
== END 2020-07-21 00:18 | disposition home or self-care (01) ==
LOC: ANHCOVIDDT 00:17
PROVIDERS: PCP Family Medicine; Visit Provider Orthopaedic Surgery
DX: Z20.828 Contact with and (suspected) exposure to other viral communicable diseases (principal)
CPT/HCPCS: 87635; C9803; U0003

== ENCOUNTER 2020-07-24 00:39 | Day surgery (SDC) | payer BC, SELFPAY ==
[2020-07-10 08:29] VITALS: BP 142/74; PULSE 76; RESP 18; TEMP 37.2; O2SAT 97; BMI 38.9
[2020-07-24] VITALS (9 sets, daily range): BP systolic 98–136; BP diastolic 50–78; PULSE 72–83; RESP 12–20; TEMP 36.4–36.6; O2SAT 96–100
--- NOTE | ~2020-07-24 | XR_ITS ---
EXAMINATION: XR knee RT 2V DATE: 07/24/2020 10:06 [employer] INDICATION: Right total knee arthroplasty TECHNIQUE: 2 views right knee FINDINGS: There is a right total knee arthroplasty in expected position. Subcutaneous gas with fluid and air in the joint and overlying skin harlan are consistent with recent surgery. No evidence of p eriprosthetic fracture. IMPRESSION: 1. Recent right total knee arthroplasty. Reviewed, dictated and finalized at location A. [employer]
[2020-07-24] MEDS: ACETAMINOPHEN 500 MG TABLET 1000 MG PO (06:24)
[2020-07-24] MEDS: LACTATED RINGERS 1,000 ML 30 ML IV CONT ×2 (06:35→09:54)
--- NOTE | 2020-07-24 06:42 | WPDANESEPPF ---
Anes - Initial Pre Proc Eval Procedure: Operation Date: 07/24/20 07:30 Proposed Procedures p Right Total Knee Arthroplasty - Ervin Mendoza MD Date/Time: 07/24/20 06:42 Surgeon: Ervin Mendoza MD Pre Op Diagnosis: OA Right Knee Patient Data Age: 65 Gender: F Height: 5 ft 5 in Weight: 106 kg Last Vital Signs Temp 37.2 C 07/10/20 08:29 Pulse 76 07/10/20 08:29 Resp 18 07/10/20 08:29 BP 142/74 H 07/10/20 08:29 Pulse Ox 97 07/10/20 08:29 Allergies Allergy/AdvReac Type Severity Reaction Status Date / Time ibuprofen AdvReac Mild Hypertensio Verified 07/24/20 06:20 [From NeoProfen (ibuprofen n lysn)(PF)] meloxicam AdvReac Mild NAUSEA AND Verified 07/24/20 06:20 HYPERTENSION Home Medications Medication Instructions Recorded Confirmed Type ascorbic acid (vitamin C) 500 mg 500 mg PO DAILY 09/20/19 07/24/20 History capsule calcium carbonate 600 mg calcium 600 mg PO BID 09/20/19 07/24/20 History (1,500 mg) tablet cholecalciferol (vitamin D3) 125 125 mcg PO DAILY 09/20/19 07/24/20 History mcg (5,000 unit) tablet acetaminophen [Tylenol Arthritis 650 mg PO Q8H PRN 10/29/19 07/24/20 History Pain] levothyroxine [Euthyrox] 88 mcg QAM 07/10/20 07/24/20 History sertraline [Zoloft] 50 mg PO QAM 07/10/20 07/24/20 History rivaroxaban 10 mg tablet 10 mg PO DAILY #13 tablet 07/12/20 07/12/20 Rx Patient hx anesthesia problems: none Family hx anesthesia problems: none PMFSH Past Medical History Medical History BMI 36.0-36.9,adult BMI 38.0-38.9,adult Colon cancer screening Depression Mai's disease Obesity Surgical History Surgical History History of dilatation and curettage 1984 Dr. Hartbeck History of facial surgery 12/2011 History of total left knee replacement January 2020 Family History Family History Father Diabetes mellitus Heart disease Hypertension Mother Diabetes mellitus Heart disease Hypertension Sibling Cancer Grandparent Diabetes mellitus maternal and paternal Cancer Maternal Social History Social History Smoking status: Never smoker Alcohol intake: never Substance use: never Substance use type: does not use Living arrangements: with family Additional living arrangements comments: , daughter, and 3 grandchildren. 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 Questions were solicited and answers provided to the satisfaction of the patient/family/POA.
[2020-07-24] MEDS: TRANEXAMIC ACID 1,000MG/ISO100 1,000 MG/100 ML BAG 200 MG IVPB (06:54)
--- NOTE | 2020-07-24 07:11 | WPDHPUPDATE1 ---
History and Physical Update Update Date/Time: 07/24/20 07:11 History and Physical has been reviewed, including an updated exam of the patient. There are NO changes in the patient's condition. Risks, benefits, and alternatives have been discussed and questions answered. Patient agrees to proceed with procedure.
--- NOTE | 2020-07-24 07:18 | WPDANESPNB ---
Anes - Peripheral Nerve Block Date/Time: 07/24/20 07:18 I have discussed with the patient/family/POA the placement of a peripheral nerve block for post-operative pain management, including associated risks, benefits, complications, and side effects. Alternative methods of post-operative analgesia were detailed. Questions were solicited and answers provided to the satisfaction of the patient/family/POA. Time-Out: A pre-procedural Time-Out was completed immediately before starting the procedure and confirmed: Patient Identification, Site, Procedure, Patient Position and the Availability of Requisite Equipment. Clinical Indications: Acute post-operative pain management requested by the operative surgeon. Nerve Block Insertion Note Anes-nerve block: adductor canal right Patient position: supine Needle: 22 gauge, stimulating, insulated echogenic needle. Needle length: 80 mm Technique: ultrasound Injectate: bupivacaine 0.5% with epi 5 mcg/ml (no epi) Observations: tolerated well Complications: none Procedure start time:: 704 Procedure end time:: 714
[2020-07-24] MEDS: ceFAZolin 2 GM/D5W 50 ML 2 GM/50 ML BAG IVPB (07:56)
[2020-07-24] MEDS: TRANEXAMIC ACID 1,000 MG/10 ML AMPUL 1000 MG TOPICAL (07:56)
[2020-07-24] MEDS: GENTAMICIN BONE CEMENT REFOBACIN 1 EACH TOPICAL (08:36)
--- NOTE | 2020-07-24 09:45 | P.OP_ITS ---
Procedure Note - Detailed Date of procedure: 07/24/20 Pre-op diagnosis: OA Right Knee Post-op diagnosis: same Procedure performed: Right total knee replacement Description of procedure: The patient was identified and proper site identified. In the preop holding area the anesthesia team performed a right leg sub sartorial block after which the patient was taken to the operating room and transferred to the OR table positioning supine taking care to pad the torso and extremities. After general anesthetic induction and intubation a nonsterile tourniquet was placed high on the right thigh. The right lower extremity was prepped and draped in the usual sterile fashion. The extremity was exsanguinated and with the knee flexed tourniquet was inflated to 300 mmHg remaining up for approximately 52 minutes. An anterior midline incision was made and a modified medial parapatellar approach was used. Infra and suprapatellar fat pads were excised. Patella was resected leaving 15 mm thickness and prepared for the 34 round three peg component. Using the intramedullary guide the distal femur was cut in the proper orientation for the size 65 femoral component. Using the extramedullary guide the tibia was cut perpendicular to the long axis protecting collateral ligaments and popliteal structures. It was sized to a 71. Flexion and extension gaps were balanced. Trial reduction was undertaken and the weight-bearing line was noted to passed through the center of the joint. Proximal tibia was drilled and punched in the proper orientation for the real component. Trial components were removed. The bone surfaces were washed with pulsatile lavage and dried. The real components were cemented simultaneously. The knee was held in extension and the patella held clamped until the cement had cured. Excess cement was removed from the joint. After trialing it was determined that the 10 mm insert gave full range of motion from 0-120 degrees of flexion and the patella tracked in the femoral groove with no lift-off. After final lavage the joint the real 10 E-poly insert was placed and secured with a locking bar. A Betadine and saline wash was placed into the wound and allowed to sit for approximately 3 minutes and then evacuated. Periarticular tissues were infiltrated with 60 cc of the arthroplasty solution. 1 g of tranexamic acid was left in the wound. The extensor mechanism was repaired with #2 Vicryl suture and 0 looped PDS suture. Subcu was reapproximated with three 0 Monocryl and two strata fix with tissue adhesive for the skin. A sterile dressing was applied. she tolerated the procedure well, was awakened and extubated, transferred to the bed and was taken to recovery area in stable condition. There were no known intraoperative complications. Perioperative antibiotics were administered. Anesthesia: GLMA and regional Surgeon: Ervin Mendoza MD Senior Counsel Commercial: Rey Estimated blood loss (mL): 100 Tourniquet time (min): 52 Drains: No Packing: No Pathology: none sent Complications: No immediate complications Condition: stable Disposition: PACU
[2020-07-24] MEDS: ceFAZolin SODIUM 1 GM VIAL IV PUSH (09:49)
[2020-07-24] MEDS: fentaNYL CITRATE INJ (*CRX) 100 MCG/2 ML VIAL 25 MCG IV PUSH ×5 (09:59→10:31)
--- NOTE | 2020-07-24 11:14 | SUR.PHASEII ---
1114- pt resting in stretcher. pt on phone talking with family.
--- NOTE | 2020-07-24 11:29 | SUR.PHASEII ---
1129 - Kiya from PT in room working with pt
[2020-07-24] MEDS: oxyCODONE HCL (*CRX) 5 MG TAB IR PO (12:15)
--- NOTE | 2020-07-24 12:37 | SUR.PHASEII ---
PHYSICAL THERAPY COMPLETED. PT WAS ABLE TO WALK TO BATHROOM WITH WALKER WITH THERAPIST ASSISTING. PT NOW EATING LUNCH WITH GOOD APPETITE. ANESTHESIOLOGY CALLED; WILL COME SEE PT PRIOR TO LEAVING.
--- NOTE | 2020-07-24 13:02 | SUR.PHASEII ---
DR. CHAPMAN HERE TO SEE PT; OKAYED FOR HER TO GO HOME.
== END 2020-07-24 13:21 | disposition home or self-care (01) ==
PROVIDERS: PCP Family Medicine; Visit Provider Orthopaedic Surgery
PROC: (CPT 27447; principal; 2020-07-24 07:30)
DX: M17.11 Unilateral primary osteoarthritis, right knee (principal); G89.18 Other acute postprocedural pain; E06.3 Autoimmune thyroiditis; F32.9 Major depressive disorder, single episode, unspecified; Z79.01 Long term (current) use of anticoagulants; E66.9 Obesity, unspecified; Z68.38 Body mass index [BMI] 38.0-38.9, adult
CPT/HCPCS: 27447; 64447; 36415; 73560; 86850; 86900; 86901; 97110; 97116; 97161; A9270; C1713; C1776; J0690; J1100; J2250; J2405; J2704; J3010; J7120

== ENCOUNTER 2020-09-08 09:00 | Outpatient (RCR) | payer BC, SELFPAY ==
--- NOTE | 2020-07-19 10:49 | PTOPEVAL ---
Thank you for referring Radha Zhang to [facility].? The patient is scheduled to be seen for pre- op TKR therapy visit today. She demonstrates indep with her post-op exercise. She verbalizes understanding of use of walker for walking at home, LE position in seated or supine position, and use of ice for pain and swelling control. Will reassess her on 08/01/20 her for post surgery visit. Additional goals will be added at that time based on post-surgery limitations. Please review, sign, date and return this plan of care ANA. I agree with and certify that the following plan of care is medically necessary. Referring Physician Date Attending Provider: Ervin Mendoza MD Referring Provider: *PT Outpatient Evaluation Start: 07/19/20 09:59 Freq: Status: Active Protocol: Document 07/19/20 09:58 CAP (Rec: 07/19/20 10:36 CAP [id number]) Therapy Assessment Status Assessment Status Assessment Status Evaluation Outpatient Past Medical History Past Medical History Source of Past Medical History Patient,Recalled from Previous Visit, Confirmed with Patient /Family Neurological History Hx Neurological Disorders No Significant History Cardiovascular History Hx Other Cardiac Disorders Yes: H2O AEROBIC 2-3XWK/45MIN PRIOR TO LKA 01/2020, RIDES STATIONARY BIKE DAILY Respiratory History Hx Respiratory Disorders No Significant History Gastrointestinal History Hx Gastrointestinal Disorders No Significant History Genitourinary History Hx Genitourinary Disorders No Significant History Musculoskeletal History Hx Arthritis Yes: KNEES Hx Fractures Yes: COLLAR BONE,NOSE Hx Joint Replacement Yes: left TKA 01/2020 Hx Other Musculoskeletal Disorders Yes: ARTHRITIS RT KNEE Hematological History Hx Hematological Disorders No Significant History Endocrine History Hx Other Endocrine Disorders Yes: HASHIMOTOS THYROIDITIS HEENT History Hx Sinus Problems Yes: SEASONAL ALLERGIES Hx Other HEENT Disorders Yes: 2011 FACIAL SURGERY AT [facility] Integumentary History Hx Skin Disorders No Significant History Reproductive History Hx Post Menopausal Yes Hx Other Reproductive Disorders Yes: D&C 1979' DUE TO HEAVY BLEEDING Psychosocial History Hx Depression Yes Pain History Has Past Pain Affected Your Daily Life Yes: KNEES Anesthesia History Hx Anesthesia Reactions No Significant History Other History Hx Implanted Device Yes: LT TKA Evaluation Information Problem Diagnosis OA of right knee Onset chronic Subjective Information Reports she is scheduled for Query Text:As Reported By Patient/ her right TKR on 07/24/20. Family
--- NOTE | 2020-08-01 14:30 | PTOPEVAL ---
Thank you for referring Radha Zhang to [facility].? The patient is scheduled to be seen for therapy? 2-3 x/week for 8 weeks. Please review, sign, date and return this plan of care ANA. I agree with and certify that the following plan of care is medically necessary. Referring Physician Date Attending Provider: Ervin Mendoza MD Referring Provider: Post-surgery Evaluation *PT Outpatient Evaluation Start: 07/19/20 09:59 Freq: Status: Active Protocol: Document 08/01/20 13:19 EMMETT (Rec: 08/01/20 14:17 EMMETT [id number]) Therapy Assessment Status Assessment Status Assessment Status Evaluation Outpatient Past Medical History Past Medical History Source of Past Medical History Patient,Recalled from Previous Visit, Confirmed with Patient /Family Neurological History Hx Neurological Disorders No Significant History Cardiovascular History Hx Other Cardiac Disorders Yes: H2O AEROBIC 2-3XWK/45MIN PRIOR TO LKA 01/2020, RIDES STATIONARY BIKE DAILY Respiratory History Hx Respiratory Disorders No Significant History Gastrointestinal History Hx Gastrointestinal Disorders No Significant History Genitourinary History Hx Genitourinary Disorders No Significant History Musculoskeletal History Hx Arthritis Yes: KNEES Hx Fractures Yes: COLLAR BONE,NOSE Hx Joint Replacement Yes: left TKA 01/2020, right TKR 07/24/20 Hx Other Musculoskeletal Disorders Yes: ARTHRITIS RT KNEE Hematological History Hx Hematological Disorders No Significant History Endocrine History Hx Other Endocrine Disorders Yes: HASHIMOTOS THYROIDITIS HEENT History Hx Sinus Problems Yes: SEASONAL ALLERGIES Hx Other HEENT Disorders Yes: [address] [facility]- FELL AT WORK Integumentary History Hx Skin Disorders No Significant History Reproductive History Hx Post Menopausal Yes Hx Other Reproductive Disorders Yes: D&C 1979' DUE TO HEAVY BLEEDING Psychosocial History Hx Depression Yes Pain History Has Past Pain Affected Your Daily Life Yes: KNEES Anesthesia History Hx Anesthesia Reactions No Significant History Other History Hx Implanted Device Yes: LT TKA Evaluation Information Problem Diagnosis OA of right knee, s/p TKR Onset 07/24/20 Subjective Information Reports severe knee pain since Query Text:As Reported By Patient/ her surgery. States the knee Family is swollen with bruising on the posterior aspect. She is attempting to her perform her
--- NOTE | 2020-09-06 09:15 | PCPTNOTE ---
Patient called & cancelled scheduled appointment this date due to having a migraine.
--- NOTE | 2020-09-08 15:59 | PTOPEVAL ---
Thank you for referring Radha Zhang to [facility].? The patient is scheduled to be seen for therapy? 1 x/week for 4 weeks. Please review, sign, date and return this plan of care ANA. I agree with and certify that the following plan of care is medically necessary. Referring Physician Date Attending Provider: Ervin Mendoza MD Referring Provider: *PT Outpatient Evaluation Start: 07/19/20 09:59 Freq: Status: Active Protocol: Document 09/08/20 09:13 EMMETT (Rec: 09/08/20 09:54 EMMETT [id number]) Therapy Assessment Status Assessment Status Assessment Status Re-evaluation Evaluation Information Problem Diagnosis OA of right knee, s/p TKR Onset 07/24/20 Subjective Information She cont to c/o right knee Query Text:As Reported By Patient/ swelling with negotiating Family steps. Denies pain with knee motion, but increase acheness and stiffness of the knee. She is not using an AD. She denies problem with household and community mobility, IADL's . Pain Assessment Timing of Pain Assessment Timing of Pain Assessment Re-assessment Pain Scale Pain Scale Used Numeric (1 - 10) Self Report Pain Assessment Right Knee(s) Reported Pain Level 0 Pain Description Aching Pain Frequency Intermittent Lowest Pain Intensity 0 Greatest Pain Intensity 1 Pain Aggravating Factors Stair Climbing,Weight Bearing/ Standing Pain Behaviors None Pain Score Pain Score 0: Self Report Interventions Used Pain Relief Interventions Used By Exercise,Ice Patient Lower Extremity Range of Motion Knee Range of Motion Left Knee Flexion Range of Motion - Active 102 Knee Extension Range of Motion - Active -6 Query Text: Knee Range of Motion Limitations Soft Tissue Restriction Right Knee Flexion Range of Motion - Active 100 Knee Extension Range of Motion - Active -3 Query Text: Knee Range of Motion Comments measured in supine Lower Extremity Muscle Strength Testing Hip Strength Right Hip Flexion Strength 4+ Good + Hip Extension Strength 3 Fair Hip Abduction Strength 3 Fair Left Hip Flexion Strength 4+ Good + Hip Extension Strength 3 Fair Hip Abduction Strength 3 Fair Knee Strength Right Knee Flexion Strength 4 Good Knee Extension Strength 4+ Good + Left Knee Flexion Strength 4 Good Knee Extension Streng
--- NOTE | 2020-09-18 13:44 | PCPTNOTE ---
Admitting Provider: Attending Provider: Ervin Mendoza MD Patient:Radha Zhang Date of :1955 Discharge Note Patient has not returned for any further therapy treatments since her recent update on 09/08/2020, due to insurance changes. She has not returned for any therapy visits since her last update on 09/08/20. She will be discharged from therapy services at this time with goals partially met. Thank you for referring this patient to [facility]. Please review, sign, date and return this discharge summary ANA. I have been updated about the patient's current status and I agree with discharge from the above service at this time. Referring Physician Date
== END 2020-09-19 10:17 | disposition home or self-care (01) ==
LOC: ANHPT 09:00
PROVIDERS: PCP Family Medicine; Visit Provider Orthopaedic Surgery
DX: Z47.1 Aftercare following joint replacement surgery (principal); Z96.651 Presence of right artificial knee joint
CPT/HCPCS: 97014; 97110; 97112; 97116; 97140; 97161; 97162; 97530; G0283

== ENCOUNTER → 2021-07-25 01:56 | Outpatient (CLI) | payer OTHER, SELFPAY ==
[2021-07-25 18:14] LABS: SARS-CoV-2 RNA PCR Negative
== END ==
PROVIDERS: PCP Family Medicine; Visit Provider Family Medicine
DX: R05.9 Cough, unspecified (principal); Z20.822 Contact with and (suspected) exposure to COVID-19
CPT/HCPCS: C9803; U0003; U0005

== ENCOUNTER 2021-07-31 11:13 | Outpatient (CLI) | payer OTHER, SELFPAY ==
[2021-07-31 11:49] LABS: Basophils Percent Auto 0.4 % (0.2-1.2); Eosinophils Absolute Auto 0.2 K/mm3 (0-0.3); Eosinophils Percent Auto 3.4 % (0-4.4); Hematocrit 38.3 % (37.0-47.0); Hemoglobin 12.5 g/dL (12.0-15.0); Immature Granulocyte Absolute 0.01 K/mm3 (0.00-0.031); Immature Granulocyte Percent A 0.2 % (0-0.5); Lymphocytes Absolute Auto 1.08 K/mm3 (0.9-3.2); Lymphocytes Percent Auto 21.7 % (18.3-44.2); Mean Corpuscular HGB Conc 32.6 g/dl (32-36); Mean Corpuscular Hemoglobin 28.8 pg (26-34); Mean Corpuscular Volume 88.2 fl (80-100); Mean Platelet Volume 10.7 fl (7.4-10.4); Monocytes Absolute Auto 0.5 K/mm3 (0.1-0.6); Monocytes Percent Auto 9.3 % (2.6-8.5); Neutrophils Absolute Auto 3.2 K/mm3 (1.3-6.7); Platelet Count Result 237 k/mm3 (150-375); Red Blood Count 4.34 M/mm3 (4.2-5.4); Red Cell Distribution Width 13.4 % (11.5-14.5)
[2021-07-31 11:58] LABS: Hemoglobin A1C 5.7 % (<5.7)
[2021-07-31 11:59] LABS: Alanine Aminotransferase 14 U/L (4-35); Albumin Level 4.2 g/dL (3.5-5.1); Alkaline Phosphatase 94 U/L (38-126); Anion Gap 8 mmol/L (8-16); Aspartate Amino Transferase 18 U/L (14-36); Bilirubin,Total 0.5 mg/dL (0.2-1.3); Blood Urea Nitrogen 15 mg/dL (7-17); Calcium 9.6 mg/dL (8.4-10.2); Carbon Dioxide 29 mmol/L (22-30); Chloride 104 mmol/L (98-107); Cholesterol 165 mg/dL (0-200); Estimated Glomerular Filt Rate > 60; Glucose 106 mg/dL (65-110); HDL Direct 46 mg/dL; Potassium 3.7 mmol/L (3.4-5.0); Sodium 141 mmol/L (137-145); Triglycerides 137 mg/dL (<150)
[2021-07-31 12:10] LABS: LDL Cholesterol Direct 86 mg/dL
[2021-07-31 12:15] LABS: Free T4 Free Thyroxine 1.47 ng/mL (0.78-2.19)
[2021-07-31 12:29] LABS: Thyroid Stimulating Hormone 0.205 uIU/mL (0.465-4.680)
[2021-08-03 05:30] LABS: Triiodothyronine T3 Free 3.2 pg/mL (2.3-4.2)
== END 2021-07-31 11:14 | disposition home or self-care (01) ==
PROVIDERS: PCP Family Medicine; Visit Provider Family Medicine
DX: Z13.0 Encounter for screening for diseases of the blood and blood-forming organs and certain disorders involving the immune mechanism (principal); R73.9 Hyperglycemia, unspecified; E06.3 Autoimmune thyroiditis; R03.0 Elevated blood-pressure reading, without diagnosis of hypertension
CPT/HCPCS: 36415; 80053; 80061; 83036; 84439; 84443; 84481; 85025

== ENCOUNTER 2022-06-23 13:56 | Emergency (ER) | payer OTHER, SELFPAY ==
--- NOTE | 2022-06-23 14:02 | ED.URI ---
HPI - URI/Sore Throat General Chief Complaint: Upper Respiratory Infection Stated Complaint: SINUS CONGESTION Time Seen by Provider: 06/23/22 14:03 Source: patient, RN notes reviewed and old records reviewed Mode of arrival: ambulatory Limitations: no limitations History of Present Illness HPI Narrative: 66 [facility] sinus [facility] for 3 weeks. Has been using Zyrtec daily. He has also been using saline nasal spray. Denies fevers. Denies chest pain. No shortness of breath or abdominal pain. Related Data Home Medications Medication Instructions Recorded Confirmed ascorbic acid (vitamin C) 500 mg 500 mg PO DAILY 09/20/19 06/23/22 capsule calcium carbonate 600 mg calcium 600 mg PO BID 09/20/19 06/23/22 (1,500 mg) tablet (Calcium) cholecalciferol (vitamin D3) 125 125 mcg PO DAILY 09/20/19 06/23/22 mcg (5,000 unit) tablet (Vitamin D3) acetaminophen 650 mg 650 mg PO Q8H PRN Pain 10/29/19 06/23/22 tablet,extended release (Tylenol Arthritis Pain) Allergies Allergy/AdvReac Type Severity Reaction Status Date / Time ibuprofen AdvReac Mild Hypertensio Verified 07/24/21 14:24 [From NeoProfen (ibuprofen n lysn)(PF)] meloxicam AdvReac Mild NAUSEA AND Verified 07/24/21 14:24 HYPERTENSION Review of Systems Review of Systems: All systems reviewed & are unremarkable except as noted in HPI and below Constitutional: Constitutional: Reports no additional constitutional complaints, Denies chills and Denies fever(s) Eyes: Eyes: Reports no additional eye complaints ENT: Reports as per HPI and Reports nasal congestion Cardiovascular: Cardiovascular: Reports no additional cardiovascular complaints Respiratory: Respiratory: Reports no additional respiratory complaints Gastrointestinal: Gastrointestinal: Reports no additional gastrointestinal complaints Musculoskeletal: Musculoskeletal: Reports no additional musculoskeletal complaints Integumentary/Breasts: Skin/Breast: Reports system reviewed and no additional complaints, except as docu Neurologic: Reports system reviewed and no additional complaints, except as documented Psychiatric: Psychiatric: Reports no additional psychiatric complaints Allergic/Immunologic: Allergic/Immunologic: Reports no additional allergic/immunologic complaints PMFSH Past Medical History Medical History BMI 36.0-36.9,adult BMI 38.0-38.9,adult Colon cancer screening Depression Mai's disease Obesity Surgical History Surgical History History of dilatation and curettage 1984 Dr. Ivy History of facial surgery 12/2011 History of total left knee replacement January 2020 History of total right knee replacement July 2020 Family History Family History Father Diabetes mellitus Heart disease Hypertension Mother Diabetes mellitus Heart disease Hypertension Sibling Cancer Grandparent Diabetes mellitus maternal and paternal Cancer Maternal Social History Social History Smoking status: Never smoker Alcohol intake: never Alcohol use details: occasional Substance use: never Substance use type: does not use Additional living arrangements comments: , daughter, and 3 grandchildren. 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 There is no relevant family history pertinent to the patient complaint. Exam Const: General: healthy appearing, no acute distress, alert and well nourished Nu
[2022-06-23 14:07] VITALS: BP 129/88; PULSE 70; RESP 18; TEMP 37.2; O2SAT 99
== END 2022-06-23 14:15 | disposition home or self-care (01) ==
PROVIDERS: Emergency Provider Nurse Practitioner; PCP Family Medicine
DX: J32.9 Chronic sinusitis, unspecified (principal); E06.3 Autoimmune thyroiditis; E66.9 Obesity, unspecified; Z68.41 Body mass index [BMI] 40.0-44.9, adult; Z96.653 Presence of artificial knee joint, bilateral
CPT/HCPCS: 99213; G0463

== ENCOUNTER 2023-04-11 14:15 | Outpatient (CLI) | payer OTHER, SELFPAY ==
--- NOTE | ~2023-04-11 | MM_ITS ---
EXAMINATION: MM screening joon BI w fortino HISTORY: Screening mammogram, family history of breast cancer in her sister and daughter. TECHNIQUE: Craniocaudal and mediolateral oblique 3-D tomosynthesis images were obtained and synthetic 2-D images were generated. CAD analysis was submitted and interpreted. COMPARISON: No prior mammogram is available for comparison at this institution. BREAST PARENCHYMAL COMPOSITION: There are scattered areas of fibroglandular density. FINDINGS: RIGHT BREAST: No suspicious mass, calcification, or architectural distortion are identified to sugges t malignancy. LEFT BREAST: An asymmetry is present in the subareolar aspect of the breast on the mediolateral obliq ue view. IMPRESSION: 1. Left breast asymmetry. 2. Additional mammographic views and possible breast ultrasound are recommended. BI-RADS Category 0: Incomplete: Needs additional imaging evaluation. Reviewed, dictated and finalized at location A. IMPRESSION: 1. Left breast asymmetry. 2. Additional mammographic views and possible breast ultrasound are recommended . BI-RADS Category 0: Incomplete: Needs additional imaging evaluation.
== END 2023-04-11 14:16 | disposition home or self-care (01) ==
LOC: ANHIMG 14:18
PROVIDERS: PCP Family Medicine; Visit Provider Family Medicine
DX: Z12.31 Encounter for screening mammogram for malignant neoplasm of breast (principal); N64.89 Other specified disorders of breast; R92.8 Other abnormal and inconclusive findings on diagnostic imaging of breast
CPT/HCPCS: 77063; 77067

== ENCOUNTER 2023-05-13 12:17 | Outpatient (CLI) | payer OTHER, SELFPAY ==
--- NOTE | ~2023-05-13 | MMUS_ITS ---
EXAMINATION: MM diagnostic joon LT w fortino, US breast LT limited HISTORY: Asymmetry reported in subareolar left breast on screening MLO view of 04/11/2023 TECHNIQUE: Additional 3-D tomosynthesis images of the left breast were performed and synthetic 2-D im ages were generated. CAD analysis was submitted and interpreted. High resolution subareolar left garcia st ultrasound was performed. COMPARISON: 04/11/2023 bilateral screening mammogram FINDINGS: MAMMOGRAPHIC FINDINGS: No suspicious mass, architectural distortion, malignant calcification, skin thickening or retraction is evident. ULTRASOUND: No suspicious mass or shadowing or other significant sonographic abnormality is detected in the later al subareolar area. IMPRESSION: 1. No mammographic evidence of malignancy 2. Routine annual mammographic screening is recommended BI-RADS Category 1: Negative Reviewed, dictated and finalized at location A. IMPRESSION: 1. No mammographic evidence of malignancy 2. Routine annual mammographic screening is recommended BI-RADS Category 1: Negative
== END 2023-05-13 12:18 | disposition home or self-care (01) ==
PROVIDERS: PCP Family Medicine; Visit Provider Family Medicine
DX: R92.8 Other abnormal and inconclusive findings on diagnostic imaging of breast (principal)
CPT/HCPCS: 76642; 77061; 77065; G0279

== ENCOUNTER 2024-10-22 08:07 | Emergency (ER) | payer OTHER, SELFPAY ==
[2024-10-22 08:19] VITALS: BP 108/74; PULSE 122; RESP 16; TEMP 37.1; O2SAT 97
[2024-10-22 08:44] LABS: EDCOVIDSCREEN Negative (Negative); EDINFLUASCREEN Positive (Negative); EDINFLUBSCREEN Negative (Negative)
--- NOTE | 2024-10-22 08:47 | ED_ITS ---
HPI - General Adult General Chief complaint: Upper Respiratory Infection Stated complaint: Flu Symptoms Source: patient Mode of arrival: ambulatory Limitations: no limitations History of Present Illness HPI narrative: Patient presents for evaluation of sick symptoms for last 2 days. Symptoms include body aches and cough. She denies any fever, chills, nausea, vomiting or diarrhea. No recent sick contacts to her knowledge. She has tried OTC cough and cold medication for her symptoms. She does not smoke. Related Data Home Medications ?Medication ?Instructions ?Recorded ?Confirmed ?Last Taken ?Type ascorbic acid (vitamin C) 500 mg 500 mg PO DAILY 09/20/19 10/22/24 07/21/20 History capsule calcium carbonate (Calcium 600) 600 mg PO BID 09/20/19 10/22/24 07/21/20 History acetaminophen 650 mg 650 mg PO Q8H PRN Pain 10/29/19 10/22/24 07/23/20 History tablet,extended release (Tylenol Arthritis Pain) cholecalciferol (vitamin D3) 250 250 mcg PO DAILY 07/24/22 10/22/24 Unknown History mcg (10,000 unit) capsule Allergies Allergy/AdvReac Type Severity Reaction Status Date / Time ibuprofen (From NeoProfen AdvReac Mild Hypertensio Verified 10/22/24 08:14 (ibuprofen lysn)(PF)) n Review of Systems Review of Systems: CONSTITUTIONAL: Denies fever, chills, or sweats. EYES: Denies visual changes, redness, or discharge. ENT: Denies rhinorrhea, congestion, sore throat, or otalgia. CARDIOVASCULAR: Denies chest pain, palpitations, or edema. RESPIRATORY: Reports cough. Denies SOB GASTROINTESTINAL: Denies abdominal pain, nausea, vomiting, or diarrhea. GENITOURINARY: Denies dysuria or hematuria. SKIN: Denies rash or itching. MUSCULOSKELETAL: Reports generalized body aches NEUROLOGIC: Denies headache, numbness, dizziness, or weakness. PSYCHIATRIC: Denies anxiety or depression. [facility] Past Medical History Medical History Diverticulosis Gallstones Obesity Abnormal mammogram Hypertension Hyperglycemia Colon cancer screening Depression Mai's disease Surgical History Surgical History History of total right knee replacement July 2020 History of total left knee replacement January 2020 History of dilatation and curettage 1984 Dr. Ivy History of facial surgery 12/2011 Family History Family History Father Diabetes mellitus Heart disease Hypertension Mother Diabetes mellitus Heart disease Hypertension Sibling Cancer Grandparent Diabetes mellitus maternal and paternal Cancer Maternal Social History Social History Social History: 10/07/24 Patient declined SDOH Smoking status: Never smoker Second hand tobacco smoke exposure: No Alcohol intake: never Alcohol use details: occasional Substance use: never Substance use type: does not use Lack of Transportation: No Lack of Food: Never True Current Housing: I Have Housing Concerned About Future Housing: No Difficulty Paying Gas/Electric Bills: No Difficulty Paying for Meds: No Currently Unemployed: No Education: High School Diploma/GED Difficulty w/ Childcare or Family Care: No Living arrangements: with family Additional living arrangements comments: , daughter, and 3 grandchildren. 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 HEAD: Normocephalic, atraumatic. EYES: PERRLA and EOMI. ENT: Nares clear, no rhinorrhea or epistaxis. Mucous membranes moist. Oropharynx without tonsillar hypertrophy exudate or other lesions. Bilateral TMs pearly campbell nonbulging NECK: Supple. No adenopathy or masses. No carotid bruits or JVD CHEST: Clear to auscultation. No respiratory distress. No wheezes rales or rhonchi HEART: Regular rate and rhythm. No murmur heard. Normal peripheral pulses. ABDOMEN: Soft, nontender, nondistended, normal active bowel sounds. EXTREMITIES: Normal range of motion. No edema. SKIN: Warm, dry, no rash. NEURO: No focal deficits. Alert and oriented x3. PSYCH: Normal mood and affect. Course Course Emergency Course: This is a 69 year old female who presents today for sick symptoms. Her COVID was negative. Influenza A positive. Will dc with tamiflu. Increase hydration. OTC agents for symptom management. Follow up with primary provider. Go to the ER for worsening symptoms. Pt in agreement with plan of care. Level of Care: Express Care Visit Vital Signs Vital signs: Vital Signs Temperature 37.1 C 10/22/24 08:19 Pulse Rate 122 H 10/22/24 08:19 Respiratory Rate 16 10/22/24 08:19 Blood Pressure 108/74 10/22/24 08:19 Pulse Oximetry 97 10/22/24 08:19 Temperature 37.1 C 10/22/24 08:19 Pulse Rate 122 H 10/22/24 08:19 Respiratory Rate 16 10/22/24 08:19 Blood Pressure 108/74 10/22/24 08:19 Pulse Oximetry 97 10/22/24 08:19 Medical Decision Making Vital Signs Vital Signs: Vital Signs Temperature 37.1 C 10/22/24 08:19 Pulse Rate 122 H 10/22/24 08:19 Respiratory Rate 16 10/22/24 08:19 Blood Pressure 108/74 10/22/24 08:19 Pulse Oximetry 97 10/22/24 08:19 Temperature 37.1 C 10/22/24 08:19 Pulse Rate 122 H 10/22/24 08:19 Respiratory Rate 16 10/22/24 08:19 Blood Pressure 108/74 10/22/24 08:19 Pulse Oximetry 97 10/22/24 08:19 Lab Data Labs: Lab Results 10/22/24 Range/Units 08:42 POC Influenza A Ag Positive (Negative) POC Influenza B Ag Negative (Negative) POC SARS CoV-2 Ag Negative (Negative) Discharge Plan Discharge Clinical Impression: Influenza A Patient Disposition: Home, Self-Care Condition: Stable Instructions: Antibiotic Form, Influenza (ED) Patient Language: Georgian Prescriptions: New oseltamivir [Tamiflu] 75 mg capsule 75 mg PO Q12H 5 Days Qty: 10 0RF No Action ascorbic acid (vitamin C) 500 mg capsule 500 mg PO DAILY calcium carbonate [Calcium 600] 600 mg calcium (1,500 mg) tablet 600 mg PO BID cholecalciferol (vitamin D3) 250 mcg (10,000 unit) capsule 250 mcg PO DAILY acetaminophen [Tylenol Arthritis Pain] 650 mg Tablet Extended Release 650 mg PO Q8H PRN (Reason: Pain) levothyroxine [Euthyrox] 88 mcg tablet 88 mcg PO QAM Qty: 90 1RF Rx Instructions: Take 1 tablet by mouth once daily sertraline 100 mg tablet 100 mg PO DAILY Qty: 90 1RF bupropion HCl 150 mg tablet extended release 24 hr 150 mg PO DAILY Qty: 90 0RF lisinopril 20 mg tablet 20 mg PO DAILY Qty: 90 1RF Follow-up/Referrals: Negin Jefferson PA-C [Primary Care Provider] - Time of Disposition: 08:39
== END 2024-10-22 08:44 | disposition home or self-care (01) ==
PROVIDERS: Emergency Provider Nurse Practitioner; PCP Physician Assistant Medical
DX: J10.1 Influenza due to other identified influenza virus with other respiratory manifestations (principal); I10 Essential (primary) hypertension; E06.3 Autoimmune thyroiditis; Z20.822 Contact with and (suspected) exposure to COVID-19
CPT/HCPCS: 87426; 87804; 99213; G0463

== ENCOUNTER 2024-12-09 15:04 | Outpatient (CLI) | payer OTHER, SELFPAY ==
--- NOTE | ~2024-12-09 | MM_ITS ---
EXAMINATION: MM screening joon BI w fortino HISTORY: Screening TECHNIQUE: Craniocaudal and mediolateral oblique 3-D tomosynthesis images were obtained and synthetic 2-D images were generated. CAD analysis was submitted and interpreted. COMPARISON: Comparison to multiple prior studies sequentially, with oldest reviewed study dated 04/11. BREAST PARENCHYMAL COMPOSITION: Not dense: There are scattered areas of fibroglandular density. FINDINGS: There is no evidence of suspicious mass, calcification, or architectural distortion to sugg est malignancy in either breast. There has been no suspicious interval change. IMPRESSION: 1. No mammographic evidence of malignancy. 2. Recommend routine screening mammography in one year. BI-RADS Category 1: Negative Reviewed, dictated and finalized at location A.
--- OUTSIDE RECORDS SUMMARY | 2024-12-09 15:30 | XMS_ITS | Clinical Summary ---
Author Organization [facility] Address [facility] [place] [address] Care Team Providers Care Insurance Agents Supervisor Name Role Phone Jenaro Roth MD Primary Care Provider Unavail able Negin Jefferson PA Unavailable [phone] Source Comments [facility],non-owned Affiliates and Associated Physician Practices is amultiple site organization consisting of ambulatory clinics and hospital sitesin [place], [place], [place] and [place]. This disclosure is being madepursuant to the Care Everywhere program and may not contain all information available regarding this patient. Last updated 18.[facility] Allergies No known active allergies Medications * Be aware that medications may not be up to date on this document. Alwaysverify current medications with the patient. Medication Sig Dispensed Refills Start Date End Date Status calcium 500 mg TABS tablet Take 500 mg by mouth 2 times daily with morning and evening meal Active LEVOTHYROXINE SODIUM PO Active VITAMIN E PO Active Cholecalciferol (VITAMIN D PO) Active Aspirin-Acetaminophen- Caffeine (EXCEDRIN PO) Ac tive Family History Medical History Relation Name Comments Diabetes - Type 2 Father Other - Cardiac Father Cancer - Other Mother Diabetes - Type 2 Mother Other - Cardiac Mother Asthma Neg Hx Autoimmune Disease Neg Hx Bipolar Disorder Neg Hx Cancer - Breast Neg Hx Cancer - Colon Neg Hx Cancer - Ovarian Neg Hx Cancer - Pancreatic Neg Hx Cancer - Prostate Neg Hx Depression Neg Hx Eczema Neg Hx Hypertension Neg Hx Migraine Neg Hx Osteoporosis Neg Hx Seizures Neg Hx Sudd. <30 Neg Hx Thyroid Disease Neg Hx Ulcerative Colitis Neg Hx Relation Name Status Comments Father Mother Social History Tobacco Use Types Packs/Day Years Used Date Smoking Tobacco: Never Smokeless Tobacco: Never Tobacco Cessation:Counseling Given: No Alcohol Use Standard Drinks/Week Comments No 0 (1 standard drink = 0.6 oz pur e alcohol) Sex and Gender Information Value Date Recorded Sex Assigned at Not on file Gender Identity Not on file Sexual Orientation Not on file Last Filed Vital Signs Vital Sign Reading Time Taken Comments Blood Pressure 120/80 08/19/2018 2:47 PM DRUG INSPECTOR Pulse 90 08/19/2018 2:47 PM DRUG INSPECTOR Temperature 36.7 C (98.1 F) 08/19/2018 2:47 PM DRUG INSPECTOR Respiratory Rate 16 08/19/2018 2:47 PM DRUG INSPECTOR Oxygen Saturation 98% 08/19/2018 2:47 PM DRUG INSPECTOR Inhaled Oxygen Concentration - - Weight 91.6 kg (202 lb) 08/19/2018 2:47 PM DRUG INSPECTOR Height 167.6 cm (5' 6 ) 08/19/2018 2:47 PM DRUG INSPECTOR Body Mass Index 32.6 08/19/2018 2:47 PM DRUG INSPECTOR Plan of Treatment Health Maintenance Due Date Last Done Comments BONE DENSITY TESTING 1955 COLOGUARD (AGES 45-75) - COL ON CA SCREENING 1957 COLON MONITORING 1957 COLONOSCOPY - COLON CA SCREENING 1957 CT COLONOGRAPHY - COLON CA SCREENING 1955 Colorectal Cancer Screening 1955 FIT - COLON CA SCREENING 1957 FLEX SIG - COLON CA SCREENING 1957 LIPID TESTING 1955 MAMMOGRAM 1957 HEPATITIS C SCREENING 06/24/1975 DTAP/TDAP/TD VACCINES (1 - Tdap) 1976 PNEUMOCOCCAL VACCINE 50+ (1 of 1 - PCV) 2007 ZOSTER VACCINE (1 of 2) 2007 SCREENING FOR DIABETES 09/24/2017 COVID-19 VACCINE ( - 2023-2 5 season) 2024 DEPRESSION SCREENING 09/01/2024 INFLUENZA VACCINE (Season Ended) 2025 Respiratory Syncytial Virus (RSV) Vaccine Pt: or over 60 yrs (1 - 1-dose 75+ series) 2032 HEPATITIS B VACCINE Aged Out No longe r eligible based on patient's age to complete this topic HIB VACCINE Aged Out No longer eligi ble based on patient's age to complete this topic HPV VACCINE Aged Out No longer eligi ble based on patient's age to complete this topic MENINGOCOCCAL (Group B) VACC INE SHARED DECISION-MAKING Aged Out No longer eligibl e based on patient's age to complete this topic MENINGOCOCCAL GROUPS A/C/Y/W VACCINE Aged Out No longer eligible b ased on patient's age to complete this topic Care Teams Insurance Agents Supervisor Relationship Specialty Start Date End Date Jenaro Roth MD PCP - General 11/08/19 Negin Jefferson PA [address] [place] [id number] PCP - Attributed-[employer] [facility] 09/01/24
== END 2024-12-09 15:05 | disposition home or self-care (01) ==
PROVIDERS: PCP Physician Assistant Medical; Visit Provider Physician Assistant Medical
DX: Z12.31 Encounter for screening mammogram for malignant neoplasm of breast (principal)
CPT/HCPCS: 77063; 77067

== ENCOUNTER 2025-01-07 | Day surgery (SDC) | payer OTHER, SELFPAY ==
[2024-12-28 14:43] VITALS: BMI 41.9
--- OUTSIDE RECORDS SUMMARY | 2025-01-07 00:05 | XMS_ITS | Clinical Summary ---
Author Organization [facility] Address [address] [place] [address] Care Team Providers Care Housefellow Name Role Phone Jenaro Roth MD Primary Care Provider Benjie Butt MD Unavailable [phone] Source Comments [facility],non-owned Affiliates and Associated Physician Practices is amultiple site organization consisting of ambulatory clinics and hospital sitesin [place], [place], [place] and [place]. This disclosure is being madepursuant to the Care Everywhere program and may not contain all information available regarding this patient. Last updated 18.[facility] Allergies No known active allergies Medications * Be aware that medications may not be up to date on this document. Alwaysverify current medications with the patient. calcium 500 mg TABS tablet Take 500 mg by mouth 2 times daily with morning and evening meal Active LEVOTHYROXINE SODIUM PO Active VITAMIN E PO Active Cholecalciferol (VITAMIN D PO) Activ e Aspirin-Acetami nophen-Caffeine (EXCEDRIN PO) Active Family History Medical History Relation Name Comments [...] drink = 0.6 oz pur e alcohol) Comments No Sex and Gender Information Value Date Recorded Sex Assigned at Not on file Legal Sex Female 6:44 PM CDT Gender Identity Not on file Sexual Orientation Not on file Last Filed Vital Signs Vital Sign Reading Time Taken Comments Blood Pressure 120/80 08/19/2018 2:47 PM CULINARY WORKER Pulse 90 08/19/2018 2:47 PM CULINARY WORKER Temperature 36.7 C (98.1 F) 08/19/2018 2:47 PM CULINARY WORKER Respiratory Rate 16 08/19/2018 2:47 PM CULINARY WORKER Oxygen Saturation 98% 08/19/2018 2:47 PM CULINARY WORKER Inhaled Oxygen Concentration - - Weight 91.6 kg (202 lb) 08/19/2018 2:47 PM CULINARY WORKER Height 167.6 cm (5' 6 ) 08/19/2018 2:47 PM CULINARY WORKER Body Mass Index 32.6 08/19/2018 2:47 PM CULINARY WORKER Plan of Treatment Health Maintenance Due Date [...] 2007 SCREENING FOR DIABETES 09/24/2017 COVID-19 VACCINE (1 - 2023-2 5 season) 2024 DEPRESSION SCREENING [...] on patient's age to complete this topic Insurance ANTHEM Member Subscriber Plan / Payer (Ef fective 2017-Present) Name:Radha Zhang Relation to Subscriber:Spouse Name:MARLY ZHANG Date of :1956 (Home) Address: [address] [place] [id number] Payer ID:[id number] (NAIC) Type:PPO Address: [place] [phone] ANTHEM Care Teams Housefellow Relationship Specialty Start Date End Date Jenaro Roth MD PCP - General 11/08/19 Benjie Malcolm MD [address] [place] [address] PCP - Attributed-[facility] [place] 10/30/24
[2025-01-07 12:26] VITALS: BP 129/74; PULSE 72; RESP 19; TEMP 37; O2SAT 98
--- NOTE | 2025-01-07 12:36 | P.PNAN_ITS ---
Anes - Initial Pre Proc Eval Procedure: Operation Date: 01/07/25 13:15 Proposed Procedures p Colonoscopy - Artemio Perez MD Date/Time: 01/07/25 12:36 Surgeon: Artemio Perez MD Pre Op Diagnosis: Personal history of colon polyps, unspecified Patient Data Age: 69 Gender: F Height: 1.65 m Weight: 115.5 kg Last Vital Signs Temp 98.6 F 01/07/25 12:26 Pulse 72 01/07/25 12:26 Resp 19 01/07/25 12:26 BP 129/74 01/07/25 12:26 Pulse Ox 98 01/07/25 12:26 O2 Del Method Room Air 01/07/25 12:26 Allergies Allergy/AdvReac Type Severity Reaction Status Date / Time ibuprofen (From NeoProfen AdvReac Mild Hypertensio Verified 01/07/25 12:25 (ibuprofen lysn)(PF)) n Home Medications ?Medication ?Instructions ?Recorded ?Confirmed ?Type ascorbic acid (vitamin C) 500 mg 500 mg PO DAILY 09/20/19 01/07/25 History capsule calcium carbonate (Calcium 600) 600 mg PO BID 09/20/19 01/07/25 History acetaminophen 650 mg 650 mg PO Q8H PRN Pain 10/29/19 12/28/24 History tablet,extended release (Tylenol Arthritis Pain) cholecalciferol (vitamin D3) 250 250 mcg PO DAILY 07/24/22 01/07/25 History mcg (10,000 unit) capsule levothyroxine 88 mcg tablet 88 mcg PO QAM #90 tabs 02/13/24 01/07/25 Rx (Euthyrox) lisinopril 20 mg tablet 20 mg PO DAILY #90 tabs 10/06/24 01/07/25 Rx sertraline 100 mg tablet 100 mg PO DAILY #90 tabs 01/04/25 01/07/25 Rx Patient hx anesthesia problems: none Family hx anesthesia problems: none Results Review: All pre-operative results and documents have been reviewed as part of the pre- operative evaluation. [facility] Past Medical History Medical History (Updated 11/30/24 @ 12:32 by Negin Jefferson PA-C) Diverticulosis Gallstones Obesity Abnormal mammogram Hypertension Hyperglycemia Colon cancer screening Depression Mai's disease Surgical History Surgical History History of total right knee replacement July 2020 History of total left knee replacement January 2020 History of dilatation and curettage 1984 Dr. Ivy History of facial surgery 12/2011 Family History Family History Father Diabetes mellitus Heart disease Hypertension Mother Diabetes mellitus Heart disease Hypertension Sibling Cancer Grandparent Diabetes mellitus maternal and paternal Cancer Maternal Social History Social History Social History: 11/27/24 very confident with medical forms Smoking status: Never smoker Second hand tobacco smoke exposure: No Alcohol intake: current Alcohol use details: occasional Substance use: never Substance use type: does not use Do You Feel Safe in your Home?: Yes Lack of Transportation: No Lack of Food: Never True Current Housing: I Have Housing Concerned About Future Housing: No Difficulty Paying Gas/Electric Bills: No Difficulty Paying for Meds: No Currently Unemployed: No Education: High School Diploma/GED Difficulty w/ Childcare or Family Care: No Living arrangements: with family Additional living arrangements comments: , daughter, and 3 grandchildren. Occupation/Education: occupation Additional occupation/education comments: [employer] Gender identity (if verbalized by the patient): Female Sexual Orientation (if Verbalized by the Patient): Straight or Heterosexual Spiritual care concerns: No Agree to blood products: Yes Anes - Eval Final PreProcedure Day of Procedure 01/07/25 12:36 Patient weight: morbidly obese Heart: regular rate and rhythm Lungs: clear to auscultation Airway: Mallampati scale class II Neurological: alert and oriented Last oral intake: >/= 8 hours ASA classification: III Emergent: no Anesthetic plan: proceed Anesthesia type and monitoring: general GIVS and standard monitoring Results Review: All pre-operative results and documents have been reviewed as part of the pre- operative evaluation. Informed Consent: The patient's anesthetic plan and its attendant risks and benefits were discussed with the patient/family/POA. Questions were solicited and answers provided to the satisfaction of the patient/family/POA.
[2025-01-07] MEDS: LACTATED RINGERS 1,000 ML 150 ML IV CONT (12:37)
--- NOTE | 2025-01-07 12:49 | P.HP_ITS ---
History of Present Illness History of Present Illness Consent: Risks, benefits, and alternatives have been discussed and questions answered. Patient agrees to proceed with procedure. Chief complaint: Personal history of colon polyps, unspecified Narrative: Radha Zhang is a 69 year old female with colon polyp in 2019 Review of Systems Review of Systems: All systems reviewed & are unremarkable except as noted in HPI and below PMFSH Past Medical History Medical History (Updated 01/07/25 @ 12:50 by Artemio Perez MD) Colon polyp Diverticulosis Gallstones Obesity Abnormal mammogram Hypertension Hyperglycemia Colon cancer screening Depression Mai's disease Surgical History Surgical History History of total right knee replacement July 2020 History of total left knee replacement January 2020 History of dilatation and curettage 1985 Dr. Ivy History of facial surgery 12/2011 Family History Family History Father Diabetes mellitus Heart disease Hypertension Mother Diabetes mellitus Heart disease Hypertension Sibling Cancer Grandparent Diabetes mellitus maternal and paternal Cancer Maternal Social History Social History Social History: 11/27/24 very confident with medical forms Smoking status: Never smoker Second hand tobacco smoke exposure: No Alcohol intake: current Alcohol use details: occasional Substance use: never Substance use type: does not use Do You Feel Safe in your Home?: Yes Lack of Transportation: No Lack of Food: Never True Current Housing: I Have Housing Concerned About Future Housing: No Difficulty Paying Gas/Electric Bills: No Difficulty Paying for Meds: No Currently Unemployed: No Education: High School Diploma/GED Difficulty w/ Childcare or Family Care: No Living arrangements: with family Additional living arrangements comments: , daughter, and 3 grandchildren. 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 [employer] Gender identity (if verbalized by the patient): Female Sexual Orientation (if Verbalized by the Patient): Straight or Heterosexual Spiritual care concerns: No Agree to blood products: Yes Meds Home Medications and Allergies Home Medications ?Medication ?Instructions ?Recorded ?Confirmed ?Type ascorbic acid (vitamin C) 500 mg 500 mg PO DAILY 09/20/19 01/07/25 History capsule calcium carbonate (Calcium 600) 600 mg PO BID 09/20/19 01/07/25 History acetaminophen 650 mg 650 mg PO Q8H PRN Pain 10/29/19 12/28/24 History tablet,extended release (Tylenol Arthritis Pain) cholecalciferol (vitamin D3) 250 250 mcg PO DAILY 07/24/22 01/07/25 History mcg (10,000 unit) capsule levothyroxine 88 mcg tablet 88 mcg PO QAM #90 tabs 02/13/24 01/07/25 Rx (Euthyrox) lisinopril 20 mg tablet 20 mg PO DAILY #90 tabs 10/06/24 01/07/25 Rx sertraline 100 mg tablet 100 mg PO DAILY #90 tabs 01/04/25 01/07/25 Rx Allergies Allergy/AdvReac Type Severity Reaction Status Date / Time ibuprofen (From NeoProfen AdvReac Mild Hypertensio Verified 01/07/25 12:25 (ibuprofen lysn)(PF)) n Vital Signs Vital Signs - 24 hr 01/07/25 12:26 Temperature 98.6 F Pulse Rate 72 Respiratory Rate 19 Blood Pressure 129/74 Pulse Oximetry 98 Oxygen Delivery Room Air Exam Const: General: comfortable and no acute distress HENMT: Face/Nose/Sinus: Normal nares present Eyes: General: appearance normal, both eyes and all related structures Neck: Neck: no JVD Resp: Auscultation: clear to auscultation bilaterally Cardio: Rate: regular rate Rhythm: regular rhythm GI: Inspection: non-distended GI Palp: Yes Soft to palpation Skin: General skin exam: normal color Neuro: General: gait normal Speech: normal speech Extrem: General: normal to inspection Psych: Mental Status: mental status grossly normal Assessment and Plan Assessment and plan (1) Colon polyp: Code(s): K63.5 - Polyp of colon Status: Acute Assessment and Plan: colonoscopy
[2025-01-07 13:07] VITALS: BP 112/69; PULSE 62; RESP 20; O2SAT 99
[2025-01-07 13:17] VITALS: BP 123/67; PULSE 60; RESP 17; O2SAT 99
[2025-01-07 13:27] VITALS: BP 126/63; PULSE 60; RESP 17; O2SAT 99
== END 2025-01-07 13:37 | disposition home or self-care (01) ==
PROVIDERS: PCP Physician Assistant Medical; Referring Provider Internal Medicine Gastroenterology; Visit Provider Internal Medicine Gastroenterology
PROC: 0DJD8ZZ Inspection of Lower Intestinal Tract, Via Natural or Artificial Opening Endoscopic (ICD-10-PCS; CPT 45378; principal; 2025-01-07 13:15)
DX: Z12.11 Encounter for screening for malignant neoplasm of colon (principal); K57.30 Diverticulosis of large intestine without perforation or abscess without bleeding; I10 Essential (primary) hypertension; R73.9 Hyperglycemia, unspecified; E06.3 Autoimmune thyroiditis; F32.A Depression, unspecified; E66.01 Morbid (severe) obesity due to excess calories; Z68.41 Body mass index [BMI] 40.0-44.9, adult; Z98.890 Other specified postprocedural states; Z86.0100 Personal history of colon polyps, unspecified; Z87.19 Personal history of other diseases of the digestive system; Z80.9 Family history of malignant neoplasm, unspecified; Z82.49 Family history of ischemic heart disease and other diseases of the circulatory system
CPT/HCPCS: G0105; J2003; J2704; J7120

== ENCOUNTER 2025-07-14 15:31 | Outpatient (CLI) | payer OTHER, SELFPAY ==
--- NOTE | ~2025-07-14 | US_ITS ---
EXAMINATION: US thyroid DATE: 07/14/2025 16:29 INDICATION: Nodules TECHNIQUE: Multiple ultrasound images of the thyroid were obtained. COMPARISON: March 20, 2020 FINDINGS: The right thyroid lobe measures 7.6 x 2.8 x 3.9 cm. The left thyroid lobe measures 7.1 x 3.6 x 3.6 cm. In the right lobe, the largest nodule peripherally calcified 1.8 cm nodule identified measures 4.3 x 3.4 x 2.3 cm, similar in sonographic features compared to the previous study but In the right lobe, conglomeration of masses again noted with the largest discrete mass measuring 4.3 x 3.4 x 2.3 cm, TR 4, and increased in size from 3.7 x 2.5 x 2.7 cm on the previous exam. The largest nodule in the left lobe measures 4.0 x 3.7 x 3.1 cm, also TR 4, and measured 3.9 x 3.4 x 3.1 cm on the previous exam. Other smaller equally suspicious nodules. Peripherally calcified 1.8 x 1.5 x 1.1 cm nodule in the left lobe has TR 5 characteristics. IMPRESSION: Multinodular goiter with dominant masses in both thyroid glands with suspicious characteristics and increased size. TR 5 nodule in the left lobe.. Correlate with any previous or upcoming FNA/histology. Reviewed, dictated and finalized at location A. [facility] IMPRESSION: Multinodular goiter with dominant masses in both thyroid glands w ith suspicious characteristics and increased size. TR 5 nodule in the left lobe .. Correlate with any previous or upcoming FNA/histology.
== END 2025-07-14 15:32 | disposition home or self-care (01) ==
PROVIDERS: PCP Physician Assistant Medical; Visit Provider Physician Assistant Medical
DX: E04.2 Nontoxic multinodular goiter (principal); E06.3 Autoimmune thyroiditis
CPT/HCPCS: 76536

== ENCOUNTER 2025-08-03 12:25 | Outpatient (CLI) | payer OTHER, SELFPAY ==
--- NOTE | 2025-08-03 | CY_PTH ---
PATIENT: Radha Zhang LOC: [facility] U#:[id number] AGE/SX: 70/F ROOM: RE08/03/[address]: Negin Jefferson PA-C : 1955 BED: DIS: 08/03/2025 SPEC #: [id number] RECD: 08/03/25 13:52 STATUS: AME REVernon #: [id number] MAINE: 08/03/25 00:[address]: Negin Jefferson DEPT: [facility] Cytology RECD BY: Yuniel Doss Tissues: A - FNA Thyroid Procedures: Hematoxylin and Eosin Stain Cell Block Fine Needle Aspiration Evaluation Fna Additional Pass Fine Needle Aspiration Pathologist
--- NOTE | ~2025-08-03 | US_ITS ---
EXAMINATION: US FNA w image guidance DATE: 08/03/2025 13:58 INDICATION: Nontoxic multinodular goiter TECHNIQUE: A time-out was performed to verify the patient's name, date of , and procedure to be performed. The procedure and its benefits and risks were discussed with the patient. Risks specifically discussed included bleeding and infection. The patient understood the risks and agreed to proceed. The neck was prepped and draped in the usual sterile manner. 3 mL 1% lidocaine was used for local anesthesia. 9 passes were made with a 25G needle into the lesion. Appropriate needle location was documented with continuous sonographic guidance. A sterile bandage was applied. There were no immediate complications. FINDINGS: Grayscale ultrasound images demonstrate biopsy needles advanced into the 1.8 cm peripherally calcified mass in the left thyroid lobe. IMPRESSION: 1. Successful ultrasound-guided fine needle aspiration of the 1.8 cm peripherally calcified left thyroid mass of concern. Reviewed, dictated and finalized at location A. INATION SPECIALIST IMPRESSION: 1. Successful ultrasound-guided fine needle aspiration of the 1.8 cm periphera lly calcified left thyroid mass of concern.
--- OUTSIDE RECORDS SUMMARY | 2025-08-03 13:35 | XMS_ITS | Clinical Summary ---
Author Organization [facility] Address [facility] [place] [address] Care Team Providers Care Twenty One Dealer Name Role Phone Jenaro Roth MD Primary Care Provider Unavail able Negin Jefferson PA Unavailable [phone] Source Comments [facility],non-owned Affiliates and Associated Physician Practices is amultiple site organization consisting of ambulatory clinics and hospital sitesin [place], [place], [place] and [place]. This disclosure is being madepursuant to the Care Everywhere program and may not contain all information available regarding this patient. 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 Pulse 90 08/19/2018 2:47 PM SITE MANAGER Temperature 36.7 C (98.1 F) 08/19/2018 2:47 PM SITE MANAGER Respiratory Rate 16 08/19/2018 2:47 PM SITE MANAGER Oxygen Saturation 98% 08/19/2018 2:47 PM SITE MANAGER Inhaled Oxygen Concentration - - Weight 91.6 kg (202 lb) 08/19/2018 2:47 PM SITE MANAGER Height 167.6 cm (5' 6) 08/19/2018 2:47 PM SITE MANAGER Body Mass Index 32.6 08/19/2018 2:47 PM SITE MANAGER Plan of Treatment Health Maintenance Due Date [...] of 2) 2007 SCREENING FOR DIABETES 09/24/2017 DEPRESSION SCREENING 09/01/2024 COVID-19 VACCINE (1 - 2024-2 6 season) 2025 INFLUENZA VACCINE (#1) 2025 Respiratory Syncytial Virus (RSV) Vaccine Pt: [...] fective 2017-Present) Name:Radha Zhang Relation to Subscriber:Spouse Name:GENAMARLY Calista Date of :1956 (Home) Address: [address] [place] [phone] Payer ID:[id number] (NAIC) Type:PPO Address: [place] [phone] ANTHEM Care Teams Twenty One Dealer Relationship Specialty Start Date End Date Jenaro Roth MD PCP - General 3/9/20 Negin Jefferson PA [address] [place] [id number] PCP - Attributed-[facility] 11/30/24
== END 2025-08-03 12:26 | disposition home or self-care (01) ==
PROVIDERS: PCP Physician Assistant Medical; Visit Provider Physician Assistant Medical
DX: E04.2 Nontoxic multinodular goiter (principal)
CPT/HCPCS: 10005; 88172; 88173; 88177; 88305